=== PATIENT | female | born 1940 | race Caucasian/White ===

== ENCOUNTER 2023-07-10 14:34 | Outpatient (OUT) | payer OTHER, SELFPAY ==
[2023-07-10 15:02] LABS: Basophils Absolute Auto 0.1 10^3/uL (0.0-0.1); Basophils Percent Auto 0.8 % (0.2-2.0); Eosinophils Absolute Auto 0.2 10^3/uL (0.0-0.7); Hematocrit 42.3 % (36.0-48.0); Hemoglobin 13.7 g/dL (12.0-16.0); Immature Granulocytes Abs Auto 0.02 10^3/uL (0.00-0.03); Immature Granulocytes Pct Auto 0.2 % (0.0-0.5); Lymphocytes Absolute Auto 2.1 10^3/uL (1.2-3.8); Lymphocytes Percent Auto 25.4 % (20.5-60.0); Mean Corpuscular HGB Conc 32.4 g/dL (29.9-35.2); Mean Corpuscular Hemoglobin 31.1 pg (26.7-34.0); Mean Corpuscular Volume 95.9 fL (81.0-99.0); Mean Platelet Volume 9.6 fL (9.5-13.5); Monocytes Absolute Auto 0.5 10^3/uL (0.3-0.8); Monocytes Percent Auto 6.2 % (1.7-12.0); Neutrophils Absolute Auto 5.5 10^3/uL (1.4-6.5); Neutrophils Percent Auto 65.4 % (43.0-75.0); Platelet Count 233 10^3/uL (150-450); Red Blood Count 4.41 10^6/uL (4.20-5.40); Red Cell Distribution Width 13.4 % (11.0-15.0); White Blood Count 8.4 10^3/uL (4.0-11.0)
[2023-07-10 15:30] LABS: Alanine Aminotransferase 15 U/L (14-59); Albumin Globulin Ratio 1.1; Albumin Level 3.5 g/dL (3.4-5.0); Alkaline Phosphatase 114 U/L (46-116); Anion Gap 8.5; Aspartate Amino Transferase 17 U/L (15-37); BUN Creatinine Ratio 22.5; Bilirubin Total 0.4 mg/dL (0.2-1.0); Calcium 8.4 mg/dL (8.5-10.1); Carbon Dioxide 30.3 mmol/L (21.0-32.0); Chloride 106 mmol/L (98-107); Estimated GFR (African America >60 (>=60); Estimated GFR (Non-African Ame >60 (>=60); Globulin 3.3 g/dL; Glucose 101 mg/dL (74-106); Potassium 3.8 mmol/L (3.5-5.1); Sodium 141 mmol/L (136-145); Thyroid Stimulating Hormone 1.808 uIU/mL (0.358-3.740); Total Protein 6.8 g/dL (6.4-8.2)
== END 2023-07-10 14:35 | disposition home or self-care (01) ==
LOC: LAB 14:42
PROVIDERS: PCP Internal Medicine; Visit Provider Internal Medicine
DX: G20.A1 Parkinson's disease without dyskinesia, without mention of fluctuations (principal); I47.29 Other ventricular tachycardia; I87.2 Venous insufficiency (chronic) (peripheral); I10 Essential (primary) hypertension; R53.83 Other fatigue
CPT/HCPCS: 36415; 80053; 84443; 85025

== ENCOUNTER 2024-07-13 11:45 | Outpatient (OUT) | payer MEDICARE, OTHER, SELFPAY ==
--- OUTSIDE RECORDS SUMMARY | 2024-07-07 11:00 | XMS_ITS | Encounter Summary ---
Author Organization [facility] Address [address] [place] [address] Care Team Providers Care Tactical Debriefer Name Role Phone Jose C Kilgore DO Primary Care Provider [phone] Reason for Visit * Reason Comments Parkinson's Disease Insomnia Encounter Details Date Type Department Care Team (Latest Contact Info) Description 07/07/2024 11:00 AM EDT Office Visit [facility] [address] [place] [address] Alise Rob NP [address] [place], [place] Parkinson's disease, unspecified whether dyskinesia present, unspecified whether manifestations fluctuate (CMS/HCC) (Primary Dx); Primary insomnia; REM behavioral disorder Social History Tobacco Use Types Packs/Day Years Used Date Smoking Tobacco: Never Smokeless Tobacco: Never Tobacco Cessation:Counseling Given: Not Answered Alcohol Use Standard Drinks/Week Comments Never 0 (1 standard drink = 0.6 oz pur e alcohol) Comments Unknown Sex and Gender Information Value Date Recorded Sex Assigned at Not on file Legal Sex Female 8:33 PM EDT Gender Identity Not on file Sexual Orientation Not on file documented as of this encounter Last Filed Vital Signs Vital Sign Reading Time Taken Comments Blood Pressure 130/76 07/07/2024 11:03 AM EDT Pulse 133 07/07/2024 11:03 AM EDT Temperature - - Respiratory Rate - - Oxygen Saturation - - Inhaled Oxygen Concentration - - Weight - - Height 165.1 cm (5' 5 ) 07/07/2024 11:03 AM EDT Body Mass Index - - documented in this encounter Progress Notes * Alise Rob NP - 07/07/2024 11:00 AM EDT Images from the original note were not included. Chief Complaint Patient presents with Parkinson's Disease Insomnia Patient is here today for follow-up of Insomnia and Parkinson's disease. I am following the plan ofcare established by the physician who is present in the office today. Subjective Lissette is here today with her . She states the tremor is about the same. Tremor is constant. She denies any trouble eating, drinking, or swallowing. She states she does wake up in the middle of the night and it can be hard for her to go back to sleep. She states she only tried taking the doxepin one night and it did not help much so she stopped it. Past Medical History: Diagnosis Date Parasomnia Parkinson disease (CMS/HCC) Rash Tremor Past Surgical History: Procedure Laterality Date APPENDECTOMY CARDIAC DEFIBRILLATOR REMOVAL CARDIAC ELECTROPHYSIOLOGY MAPPING AND ABLATION CHOLECYSTECTOMY HYSTERECTOMY TUBAL LIGATION Family History Problem Relation Name Age of Onset Diabetes Sister Diabetes Brother Hypertension Other Social History Tobacco Use Smoking status: Never Smokeless tobacco: Never Substance Use Topics Alcohol use: Never Allergies: Patient has no known allergies. General: No fever or chills HEENT: No nasal congestion or runny nose Pulmonary: No shortness of breath or cough Cardiovascular: No chest pain or palpitations GI: No nausea or vomiting : No dysuria or hematuria Musculoskeletal: No new aches or pains or muscle weakness Infectious: no recurrent fevers or infections Dermatologic: No rashes or skin lesions Neurologic: No new headaches or dizziness Vitals: 07/07/24 1103 BP: 130/76 Pulse: (!) 133 Body mass index is 28.46 kg/m??. Neurologic exam: General: Normal body habitus, cooperative, pleasant Mental status: Awake, alert to person, place and time. Recent and remote memory are intact. Attention and concentration are normal. Fund of knowledge is appropriate for level of education. HEENT: NC/AT Cranial nerves: CN II: Visual grijalva full to confrontation. No loss of vision CN III, IV, : pupils equal round and reactive to light. Extraocular movements intact. No ptosis present. CN V: Facial sensation is normal. CN VII: Full and symmetric facial movement. CN VIII: Hearing is normal CN IX and X: Palate elevates symmetrically. CN XI: Shoulder shrug is normal bilaterally. CN XII: Tongue is midline without atrophy or fasciculation. Speech: Clear and fluent no aphasia or dysarthria Pronator drift: Negative bilateral upper extremity Coordination: Intact, no signs of dysmetria Good finger to nose and rapid alternating movements Sensory: Sensation is intact to light and vibratory touch throughout four extremities. Motor: LUE 5/5 RUE 5/5 LLE 4+/5 RLE 4+/5 Tone: Significant resting tremor in bilateral upper extremities worse on left than the right and some mild rigidity right upper extremity mild bradykinesia throughout DTR: Bilateral Biceps 2/4 Bilateral BR 2/4 Bilateral Patellar 2/4 No spasticity Gait: unsteady Romberg's x Review and summary of old records: Assessment/Plan Diagnoses and all orders for this visit: Parkinson's disease, unspecified whether dyskinesia present, unspecified whether manifestations fluctuate ([facility]) - entacapone (Comtan) 200 MG tablet; Take one tablet with the am and dinnertime dose of Sinemet CR 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 She still has a significanttremor on the right. She does walk slow, hunched, shuffled, no arm swing. helps her out of the chair. She tried the Mysoline that caused her severe headache and some other side effects so she discontinued it and threw it away. Her other symptoms of spasticity and rigidity and bradykinesia are mostly controlled with the current medication. She does need help to get out of the chair and this does occur at home. This is likely also due to upper body debility as she does not exercise her upper body. We did discuss this again today. She is now taking her Sinemet 4 times a day. As long as she remembers the bedtime does it helps, she has forgotten it in the past. She does have very visible tremor in room today in bilateral hands, left > right. She denies a wearing off of meds. The tremor does almost disappear when she is active and while using arms during exam. This is worse with anxiety and stress, when visitors are comingover. No difficulty eating or swallowing. We are going to add Comtan to two of her dose. She is exercising and she needs to increase exercise and intensity and be more active overall. She is using the stationary pedals although they are doing the work for her as she has not used the manual mode and should do this some. Her parasomnias and REM behavior do are controlled as long as she does not watch anything scarier or thrilling before bed. She is having sleep maintnenace insomnia and we did add back in the doxepin.It is unclear why she stopped taking it. She has only tired 1 cap and should try 2. She will watch for sedation. She will allow [address]. She does have some snoring so we did order an home sleep study to look for obstructive sleep apnea and they decided to not have this done. She denies any recent falls. . . . Plan Doxepin 10 mg 1-2 caps at bedtime for insomnia, she did not try 2 and she will Add Comtan 200 mg to the am and pm doses of Sinemet Continue sinemet CR to QID Continue Requip to 2mg tid Can consider adding in Klonopin for the REM behavior disorder becomes problematic Watch for progression She was counsleed on the importance of exercises on the disease process and set a time to exercise at least 5 days out of the week and was counseled on the importance of it to delay the disease She needs to add in some upper body exercises and use pedals on manual and let the pedals do the work for her The patient fails medicine over time we can consider DBS as with her tremor she would be a good candidate for this Do not watch anything scary or to thrilling before bed to reduce any REM behavior disorder This was discussed with the patient, all questions were answered and they agreed with the treatmentplan. The patient is to call with any worsening of the condition or new symptoms. Return to clinic: 3-4 months Cosigned by Courtney Ragland DO at 07/07/2024 1:50 PM EDT documented in this encounter Plan of Treatment Upcoming Encounters Date Type Department Care Team (Late st Contact Info) Description 11/21/2024 11:00 AM EDT Office Visit [facility] [address] [place] [phone] Alise Rob NP [address] [place], [place] documented as of this encounter Visit Diagnoses Diagnosis Parkinson's disease, unspecified whether dyskinesia present, unspecified whether manifestations fluctuate ([facility])- Primary Primary insomnia 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
--- OUTSIDE RECORDS SUMMARY | 2024-07-13 11:52 | XMS_ITS | Encounter Summary ---
Author Organization [facility] Address [address] [place] [address] Care Team Providers Care Assembler Liquid Center Name Role Phone Jose C Kilgore DO Primary Care Provider [phone] Encounter Details Date Type Department Care Team (Late st Contact Info) Description 07/07/2024 Bamboo flowsheet [facility] [address] [phone] Alise Rob NP [address] [place], [place] Social History Tobacco Use Types Packs/Day Years Used Date Smoking Tobacco: Never Smokeless Tobacco: Never Alcohol Use Standard Drinks/Week Comments Never 0 (1 standard drink = 0.6 oz pur e alcohol) Comments Unknown Sex and Gender Information Value Date Recorded Sex Assigned at Not on file Legal Sex Female 8:33 PM EDT Gender Identity Not on file Sexual Orientation Not on file documented as of this encounter Plan of Treatment Upcoming Encounters Date Type Department Care Team (Late st Contact Info) Description 11/21/2024 11:00 AM EDT Office Visit [facility] [address] [phone] Alise Rob NP [address] documented as of this encounter Visit Diagnoses Not on filedocumented in this encounter Care Teams Assembler Liquid Center Relationship Specialty Start Date End Date Jose C Kilgore DO PCP - General Internal Medicine 09/28/23 documented as of this encounter
--- OUTSIDE RECORDS SUMMARY | 2024-07-13 11:52 | XMS_ITS | Encounter Summary ---
Author Organization [facility] Address [address] [place] [address] Care Team Providers Care Inventory And Pricing Associate Name Role Phone Jose C Kilgore DO Primary Care Provider [phone] Reason for Visit * Reason Comments Med Refill Encounter Details Date Type Department Care Team (Late Contact Info) Description 07/10/2024 Refill [facility] [address] [phone] Alise Rob NP [address] Parkinson's disease Social History Tobacco Use Types Packs/Day Years [...] Encounters Date Type Department Care Team (Late Contact Info) Description 11/21/2024 11:00 AM EDT Office Visit [facility] [address] [phone] Alise Rob NP [address] documented as of this encounter Visit Diagnoses Diagnosis Parkinson's disease Paralysis agitans documented in this encounter Care Teams Inventory And Pricing Associate Relationship Specialty Start Date End Date Jose C Kilgore DO PCP - General Internal Medicine 09/28/23 documented as of this encounter
--- OUTSIDE RECORDS SUMMARY | 2024-07-13 11:54 | XMS_ITS | CCD ---
Author Organization [facility] Care Team Providers Care Siphon Operator Name Role Phone DR JOSE C KILGORE Admitting Unavailable JAME, DR KELLY Attending Unavailable JAME, DR KELLY Primary Care Unavailable JAME, DR KELLY Consulting Jose C Rick Jose C Kilgore MD Primary Care Provider Jose C Kilgore DO Primary Care Provider NICKOLAS ROB Attending Unavailable NICKOLAS ROB Attending Unavailable NICKOLAS ROB Attending Unavailable Medications Current Medications Medication Drug Class(es) Dates Sig (Normalized) Sig (Original) aspirin 81 mg delayed release oral tablet (6 sources) Platelet Aggregation Inhibitor, Nonsteroidal Anti-inflammatory Drug take 1 tablet by mouth once daily aspirin (Aspirin Adult Low Dose) 81 MG EC tablet Take 81 mg by mouth Daily Active benazepril hydrochloride 10 mg oral tablet (19 sources) Angiotensin Converting Enzyme Inhibitor Start: 08-24-2023 take 10 mg by mouth once daily Benazepril Active 10 MG PO Daily 30 August 24, 2023 5:13pm Start: 08-24-2023 End: 08-24-2023 take 10 mg by mouth once daily Benazepril Discontinued 10 MG PO Daily 60 August 24, 2023 2:13pm August 24, 2023 5:14pm Start: 06-22-2023 End: 08-24-2023 take 1 tablet by mouth once daily benazepril (Lotensin) 5 MG tablet Take 5 mg by mouth Daily 06/23/2023 Active take 1 tablet by og th once daily Benazepril HCl 5 MG TAKE 1 TABLET BY MOUTH EVERY DAY for 90 Active Calcium Carbonate-Vit D-Min ( Calcium-Vitamin D-Minerals) 600-400 MG-UNIT tablet (6 sources) take 1 tablet by mouth once daily Calcium Carbonate-Vit D-Min ( Calcium-Vitamin D-Minerals) 600-400 MG-UNIT tablet Take 1 tablet by mouth Daily Active carbidopa 25 mg / levodopa 100 mg extended release oral tablet (9 sources) Aromatic Amino Acid Decarboxylation Inhibitor, Aromatic Amino Acid Start: take 1 tablet by mouth at bedtime carbidopa-levodopa CR (Sinemet CR) 25-100 MG ER tablet Indications: Tremor TAKE 1 TAB BY MOUTH IN MORNING,AT NOON,IN THE EVENING,AND BEFORE BEDTIME*DO NOT CRUSH,CHEW,OR SPLIT* 270 tablet 2 12/28/2023 Active Start: 07-08-2023 take 1 tablet by og th three times daily Carbidopa-Levodopa Active 1 TAB PO Three times daily July 08, 2023 12:00am Can add 4th dose occasionally if needed doxepin hydrochloride 10 mg oral capsule (5 sources) Tricyclic Antidepressant Start: 04-27-2024 take 1 capsule by mouth at bedtime doxepin (SINEquan) 10 MG capsule Indications: Primary insomnia TAKE 1-2 CAPSULES BY MOUTH AT BEDTIME 180 capsule 1 04/27/2024 Active Start: 04-05-2024 doxepin (SINEq uan) 10 MG capsule Indications: Primary insomnia Take 1-2 capsules at bedtime 60 capsule 2 04/05/2024 Active Start: 04-05-2024 doxepin (SINEq uan) 10 MG capsule Indications: Primary insomnia Take 1-2 capsules at bedtime 60 capsule 2 04/05/2024 Active entacapone 200 mg oral tablet (2 sources) Xssrzqfa-X-Oeivicmenfblyttns Inhibitor Start: 07-07-2024 entacapone (Comtan) 200 MG tablet Indications: Parkinson's disease, unspecified whether dyskinesia present, unspecified whether manifestations fluctuate (CMS/HCC) Take one tablet with the am and dinnertime dose of Sinemet CR 60 tablet 5 07/07/2024 Active Start: 07-07-2024 entacapone (Co mtan) 200 MG tablet Indications: Parkinson's disease, unspecified whether dyskinesia present, unspecified whether manifestations fluctuate (CMS/HCC) Take one tablet with the am and dinnertime dose of Sinemet CR 60 tablet 5 07/07/2024 Active rOPINIRole 2 mg oral tablet (9 sources) Nonergot Dopamine Agonist Start: 04-13-2024 End: 07-12-2024 take 1 tablet by mouth in the morning, then take 1 tablet by mouth in the evening, then take 1 tablet by mouth at bedtime rOPINIRole (Requip) 2 MG tablet Indications: Parkinson's disease Take 1 tablet (2 mg) by mouth in the morning and 1 tablet (2 mg) in the evening and 1 tablet (2 mg) before bedtime. 90 tablet 2 04/13/2024 07/12/2024 Active Start: 10-22-2023 take 1 tablet by og th in the morning, then take 1 tablet by mouth in the evening, then take 1 tablet by mouth at bedtime rOPINIRole (Requip) 2 MG tablet Indications: Parkinson's disease (CMS/HCC) Take 1 tablet (2 mg) by mouth in the morning and 1 tablet (2 mg) in the evening and 1 tablet (2 mg) before bedtime. 270 tablet 10/22/2023 Active Start: 07-08-2023 take 2 mg by mouth t hree times daily Ropinirole Active 2 MG PO Three times daily July 08, 2023 12:00am Suprep Bowel Prep . (7 sources) Start: 06-28-2014 Suprep Bowel P rep . as directed Orally as directed for 1 dose(s) June, Active verapamil hydrochloride 120 mg extended release oral tablet (20 sources) Calcium Channel Meron Start: 06-22-2023 End: 07-08-2023 take 1 tablet by mouth once daily Verapamil Discontinued 0 .ROUTE .COMPLEX 90 June 22, 2023 10:08pm July 08, 2023 10:00am TAKE 1 TABLET BY MOUTH EVERY DAY Start: 06-22-2023 End: 08-24-2023 take 1 tablet by mouth once daily verapamil SR (Calan SR) 120 MG ER tablet Take 120 mg by mouth Daily 06/22/2023 Active take 1 tablet by og th once daily Verapamil HCl ER 120 MG TAKE 1 TABLET BY MOUTH EVERY DAY for 90 Active Completed/Discontinued Medications Medication Drug Class(es) Dates Sig (Normalized) Sig (Original) B-12 - up to 1000 mcg (20 sources) Start: 03-02-2023 B-12 - up to 1000 mcg Feb, 1 mL Start: 01-30-2023 B-12 - up to 1 000 mcg Jan, 1000 mcg Start: 12-29-2022 B-12 - up to 1 000 mcg Dec, 1000 mcg Start: 11-25-2022 B-12 - up to 1 000 mcg Nov, 1000 mcg Start: 10-22-2022 B-12 - up to 1 000 mcg Sep, 1000 mcg Start: 09-01-2022 B-12 - up to 1 000 mcg Aug, 1000 mcg Start: 07-25-2022 B-12 - up to 1 000 mcg Jul, 1000 mcg Start: 06-05-2022 B-12 - up to 1 000 mcg May, 1000 mcg Start: 04-24-2022 B-12 - up to 1 000 mcg Apr, 1000 mcg Start: 03-17-2022 B-12 - up to 1 000 mcg Feb, 1000 mcg Problems Active Problems Problem Classification Problem Date Documented Date Episodic/Chronic Cardiac arrest and ventricular fibrillation (4 sources) Ventricular flutter; Translations: [Ventricular flutter] Onset: 02-23-1958 Chronic Cardiac dysrhythmias (6 sources) Nonsustained ventricular tachycardia ; Translations: [Nonsustained ventricular tachycardia] 07-09-2023 Chronic Deficiency and other anemia (8 sources) Vitamin B12 deficiency anemia due to intrinsic factor deficiency; Translations: [VITAMIN B12 DEF ANEMIA DUE IF DEF] Onset: 02-03-2022 Episodic Deficiency and other anemia (15 sources) Pernicious anemia; Translations: [Vitamin B12 deficiency anemia due to intrinsic factor deficiency] 06-08-2023 Episodic Disorders of lipid metabolism (20 sources) Familial hypercholesterolemia; Translations: [Hyperlipidemia] Onset: 08-08-2014 07-09-2023 Chronic Diverticulosis and diverticulitis (7 sources) Diverticular disease; Translations: [Diverticulosis] Chronic Esophageal disorders (10 sources) Esophageal reflux finding; Translations: [Esophageal reflux] 07-09-2023 Chronic Esophageal disorders (1 source) Esophageal disorders; Translations: [Gastro-esophageal reflux disease with esophagitis, without bleeding] Essential hypertension (18 sources) Essential (primary) hypertension; Translations: [Essential hypertension] Onset: 01-31-2022 Chronic Genitourinary symptoms and ill-defined conditions (4 sources) Female stress incontinence; Translations: [Female stress incontinence] Onset: 02-26-2014 Chronic Immunizations and screening for infectious disease (4 sources) Vaccination given; Translations: [Encounter for immunization] Episodic Late effects of cerebrovascular disease (4 sources) Ataxia as sequela of cerebrovascular disease; 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] Onset: 09-05-2013 Chronic Menopausal disorders (4 sources) Primary ovarian failure; Translations: [Other primary ovarian failure] Onset: 08-15-2016 Chronic Miscellaneous mental health disorders (10 sources) Primary insomnia; Translations: [Primary insomnia] Onset: 09-23-2023 09-23-2023 Chronic Nutritional deficiencies (4 sources) Vitamin D deficiency; Translations: [Vitamin D deficiency, unspecified] Chronic Other and unspecified benign neoplasm (7 sources) History of polyp of colon; Translations: [History of colon polyps] Episodic Other and unspecified benign neoplasm (4 sources) Benign neoplasm of descending colon; Translations: [Benign neoplasm of descending colon] Episodic Other and unspecified benign neoplasm (4 sources) Benign neoplasm of colon; Translations: [Benign neoplasm of colon] Episodic Other circulatory disease (4 sources) H/O: cardiovascular disease; Translations: [Personal history of other diseases of the circulatory system] Episodic Other diseases of veins and lymphatics (8 sources) Peripheral venous insufficiency; Translations: [Venous insufficiency (chronic) (peripheral)] Onset: 08-15-2016 Episodic Other diseases of veins and lymphatics (3 sources) Venous insufficiency of leg; Translations: [Venous insufficiency (chronic) (peripheral)] 07-09-2023 Episodic Other diseases of veins and lymphatics (3 sources) Venous insufficiency (chronic) (peripheral); Translations: [Venous (peripheral) insufficiency, unspecified] 07-10-2023 Episodic Other fractures (4 sources) Closed fracture of one rib; Translations: [Fracture of one rib, right side, initial encounter for closed fracture] Episodic Other injuries and conditions due to external causes (4 sources) History of fall; Translations: [History of falling] Episodic Other nutritional; endocrine; and metabolic disorders (8 sources) Body mass index 30+ - obesity; Translations: [Body mass index 30.0-30.9, adult] Onset: 08-14-2015 Chronic Other nutritional; endocrine; and metabolic disorders (4 sources) Obesity; Translations: [Obesity, unspecified] Chronic Other nutritional; endocrine; and metabolic disorders (4 sources) Simple obesity ; Translations: [Other obesity due to excess calories] Onset: 08-20-2016 Chronic Other nutritional; endocrine; and metabolic disorders (6 sources) Overweight; Translations: [Overweight] 07-10-2023 Episodic Other nutritional; endocrine; and metabolic disorders (2 sources) Overweight; Translations: [Overweight] 07-10-2023 Episodic Parkinson`s disease (17 sources) Parkinson's disease; Translations: [Parkinson's disease] Onset: 09-23-2023 07-09-2023 Chronic Residual codes; unclassified (6 sources) Parasomnia; Translations: [Parasomnia, unspecified] Onset: 09-23-2023 09-23-2023 Chronic Residual codes; unclassified (10 sources) REM sleep behavior disorder; Translations: [REM sleep behavior disorder] Onset: 09-23-2023 09-23-2023 Chronic Residual codes; unclassified (4 sources) Family history of malignant neoplasm of gastrointestinal tract; Translations: [Family history of malignant neoplasm of digestive organs] Episodic Residual codes; unclassified (4 sources) Requires influenza virus vaccination; Translations: [Need for prophylactic vaccination and inoculation, Influenza] Episodic Past or Other Problems Problem Classification Problem Date Documented Date Episodic/Chronic Cardiac dysrhythmias (4 sources) Palpitations; Translations: [Palpitations] Onset: 09-15-2018 Episodic Inflammatory diseases of female pelvic organs (4 sources) Vaginitis and vulvovaginitis; Translations: [Vaginitis and vulvovaginitis in diseases classified elsewhere] Onset: 02-07-2014 Episodic Mycoses (4 sources) Candidiasis; Translations: [Candidiasis of unspecified site] Onset: 02-26-2014 Episodic Other nervous system disorders (10 sources) Tremor; Translations: [Tremor, unspecified] Onset: 09-23-2023 09-23-2023 Episodic Other nervous system disorders (4 sources) Paresthesia; Translations: [Paresthesia of skin] Onset: 09-05-2013 Episodic Other nutritional; endocrine; and metabolic disorders (4 sources) Body mass index 25-29 - overweight; Translations: [Body mass index 28.0-28.9, adult] Onset: 08-20-2016 Episodic Other skin disorders (6 sources) Eruption; Translations: [Rash and other nonspecific skin eruption] Onset: 09-23-2023 09-23-2023 Episodic Residual codes; unclassified (4 sources) Pale complexion; Translations: [Pallor] Onset: 08-20-2016 Episodic Results Test Name Value Interpretation Reference Range Facility Basophils Auto (Bld) [#/Vol] on 07-10-2023 Basophils (Bld) [#/Vol] 0.1 10 3/uL 0.0-0.1 [facility] Basophils/100 WBC Auto (Bld) on 07-10-2023 Basophils/100 WBC (Bld) 0.8 % 0.2-2.0 [facility] Eosinophils/100 WBC Auto (Bl d)on 07-10-2023 Eosinophils/100 WBC (Bld) 2.0 % 0.9-7.0 [facility] Erythrocyte distribution wid th Auto (RBC) [Ratio]on 07-10-2023 Erythrocyte distribution width (RBC) [Ratio] 13.4 % 11.0-15.0 [facility] Estimated glomerular filtrat ion rate (GFR) non- Americanon 07-10-2023 GFR/1.73 sq M.predicted among non-blacks MDRD (S/P/Bld) [Vol rate/Area] mL/min/{1.73_m2} >=60 [facility] Globulin Calc (S) [Mass/Vol] on 07-10-2023 Globulin (S) [Mass/Vol] 3.3 g/dL [facility] Hematocrit Auto (Bld) [Volum e fraction]on 07-10-2023 Hematocrit (Bld) [Volume fraction] 42.3 % 36.0-48.0 [facility] Hemoglobin [Mass/volume] in Bloodon 07-10-2023 Hemoglobin (Bld) [Mass/Vol] 13.7 g/dL 12.0-16.0 [facility] - Chemistry and C hemistry - challengeon 07-10-2023 Albumin [Mass/Vol] 3.5 g/dL 3.4-5.[address] [facility] ALP [Catalytic activity/Vol] 114 U/L 46-116 [facility] ALT [Catalytic activity/Vol] 15 U/L 14-59 [facility] AST [Catalytic activity/Vol] 17 U/L 15-37 [facility] Bilirubin [Mass/Vol] 0.4 mg/dL 0.2-1.0 [facility] Calcium [Mass/Vol] 8.4 mg/dL Low 8.5-10.[address] [facility] Chloride [Moles/Vol] 106 mmol/L 98-107 [facility] CO2 [Moles/Vol] 30.3 mmol/L 21.0-32.0 [facility] Creatinine [Mass/Vol] 0.80 mg/dL 0.55-1.02 [facility] GFR/1.73 sq M.predicted MDRD (S/P/Bld) [Vol rate/Area] mL/min/{1.73_m2} >=60 [facility] Glucose [Mass/Vol] 101 mg/dL 74-[address] [facility] Potassium [Moles/Vol] 3.8 mmol/L 3.5-5.1 [facility] Protein [Mass/Vol] 6.8 g/dL 6.4-8.[address] [facility] Sodium [Moles/Vol] 141 mmol/L 136-[address] [facility] TSH Qn 1.808 m[IU]/L 0.358-3.740 [facility] Urea nitrogen [Mass/Vol] 18.0 mg/dL 7.0-18.0 [facility] Urea nitrogen/Creatinine [Mass ratio] 22.5 mg/mg [facility] - Hematology and Cell countson 07-10-2023 Immature granulocytes/100 WBC (Bld) 0.2 % 0.0-0.5 [facility] Leukocytes [#/volume] correc jenny for nucleated erythrocytes in Blood by Automated counon 07-10-2023 WBC corrected for nucl RBC Auto (Bld) [#/Vol] 8.4 10 3/uL 4.0-11.0 [facility] Lymphocytes Auto (Bld) [#/Vo l]on 07-10-2023 Lymphocytes (Bld) [#/Vol] 2.1 10 3/uL 1.2-3.8 [facility] Lymphocytes/100 WBC Auto (Bl d)on 07-10-2023 Lymphocytes/100 WBC (Bld) 25.4 % 20.5-60.0 [facility] MCH Auto (RBC) [Entitic mass ]on 07-10-2023 MCH (RBC) [Entitic mass] 31.1 pg 26.7-34.0 [facility] MCHC Auto (RBC) [Mass/Vol]on 07-10-2023 MCHC (RBC) [Mass/Vol] 32.4 g/dL 29.9-35.2 [facility] MCV Auto (RBC) [Entitic vol] on 07-10-2023 MCV (RBC) [Entitic vol] 95.9 fL 81.0-99.0 [facility] Monocytes Auto (Bld) [#/Vol] on 07-10-2023 Monocytes (Bld) [#/Vol] 0.5 10 3/uL 0.3-0.8 [facility] Monocytes/100 WBC Auto (Bld) on 07-10-2023 Monocytes/100 WBC (Bld) 6.2 % 1.7-12.0 [facility] Neutrophils Auto (Bld) [#/Vo l]on 07-10-2023 Neutrophils (Bld) [#/Vol] 5.5 10 3/uL 1.4-6.5 [facility] Neutrophils/100 WBC Auto (Bl d)on 07-10-2023 Neutrophils/100 WBC (Bld) 65.4 % 43.0-75.0 [facility] No Panel Informationon 07-09 Eosinophils # (Auto) 0.2 10 3/uL 0.0-0.7 [facility] Immature Granulocyte # (Auto) 0.02 10 3/uL 0.00-0.03 [facility] Platelet mean volume Auto (B ld) [Entitic vol]on 07-10-2023 Platelet mean volume (Bld) [Entitic vol] 9.6 fL 9.5-13.5 [facility] Platelets Auto (Bld) [#/Vol] on 07-10-2023 Platelets (Bld) [#/Vol] 233 10 3/uL 150-450 [facility] RBC Auto (Bld) [#/Vol]on RBC (Bld) [#/Vol] 4.41 10 6/uL 4.20-5.40 [facility] Serum or plasma albumin/glob ulin mass ratioon 07-10-2023 Albumin/Globulin [Mass ratio] 1.1 {ratio} [facility] Serum or plasma anion gap de terminationon 07-10-2023 Anion gap [Moles/Vol] 8.5 mmol/L [facility] CBC AUTO DIFFon 01-31-2022 BASO # 0.0 103/ul Normal 0.0-0.1 [facility] Comment on above: Performed By: #### C BC #### [facility] [address] [address] [address] Mary Gilliam Basophils/100 WBC (Bld) 0.4 % Normal 0.2-2.0 [facility] Comment on above: Performed By: #### C BC #### [facility] [address] [place] [address] Dr. Mary Gilliam EO # 0.1 103/ul Normal 0.0-0.7 [facility] Comment on above: Performed By: #### C BC #### [facility] [address] [place] [address] Dr. Mary Gilliam Eosinophils/100 WBC (Bld) 1.9 % Normal 0.9-7.0 [facility] Comment on above: Performed By: #### C BC #### [facility] [address] [place] [address] Dr. Mary Gilliam Erythrocyte distribution width (RBC) [Ratio] 14.5 % Normal 11.0-15.0 [facility] Comment on above: Performed By: #### C BC #### [facility] [address] [place] [address] Dr. Mary Gilliam Hematocrit (Bld) [Volume fraction] 42.6 % Normal 36.0-48.0 [facility] Comment on above: Performed By: #### C BC #### [facility] [address] [place] [address] Dr. Mary Gilliam Hemoglobin (Bld) [Mass/Vol] 13.9 g/dL Normal 12.0-16.0 [facility] Comment on above: Performed By: #### C BC #### [facility] [address] [place] [address] Dr. Mary Gilliam IG # 0.02 10e3/ul Normal 0.00-0.03 [facility] Comment on above: Performed By: #### C BC #### [facility] [address] [place] [address] Dr. Mary Gilliam IG % 0.3 % Normal 0.0-0.5 [facility] Comment on above: Performed By: #### C BC #### [facility] [address] [place] [address] Dr. Mary Gilliam LYMPH # 1.9 103/ul Normal 1.2-3.8 [facility] Comment on above: Performed By: #### C BC #### [facility] [address] [place] [address] Dr. Mary Gilliam Lymphocytes/100 WBC (Bld) 28.2 % Normal 20.5-60.0 [facility] Comment on above: Performed By: #### C BC #### [facility] [address] [place] [address] Dr. Mary Gilliam MANUAL DIFF REQ NO Normal [facility] Comment on above: Performed By: #### C BC #### [facility] [address] [place] [address] Dr. Mary Gilliam MCH (RBC) [Entitic mass] 30.9 pg Normal 26.7-34.0 [facility] Comment on above: Performed By: #### C BC #### [facility] [address] [place] [address] Dr. Mary Gilliam MCHC (RBC) [Mass/Vol] 32.6 g/dL Normal 29.9-35.2 [facility] Comment on above: Performed By: #### C BC #### [facility] [address] [place] [address] Dr. Mary Gilliam MCV (RBC) [Entitic vol] 94.7 fL Normal 81.0-99.0 [facility] Comment on above: Performed By: #### C BC #### [facility] [address] [place] [address] Dr. Mary Gilliam MONO # 0.5 103/ul Normal 0.3-0.8 [facility] Comment on above: Performed By: #### C BC #### [facility] [address] [place] [address] Dr. Mary Gilliam Monocytes/100 WBC (Bld) 6.7 % Normal 1.7-12.0 [facility] Comment on above: Performed By: #### C BC #### [facility] [address] [place] [address] Dr. Mary Gilliam NEUT # 4.2 103/ul Normal 1.4-6.5 [facility] Comment on above: Performed By: #### C BC #### [facility] [address] [place] [address] Dr. Mary Gilliam Neutrophils/100 WBC (Bld) 62.5 % Normal 43.0-75.0 [facility] Comment on above: Performed By: #### C BC #### [facility] [address] [place] [address] Dr. Mary Gilliam Platelet mean volume (Bld) [Entitic vol] 9.4 fL Critically low 9.5-13.5 [facility] Comment on above: Performed By: #### C BC #### [facility] [address] [place] [address] Dr. Mary Gilliam PLT 246 103/ul Normal 150-450 [facility] Comment on above: Performed By: #### C BC #### [facility] [address] [place] [address] Dr. Mary Gilliam RBC 4.50 106/ul Normal 4.20-5.40 [facility] Comment on above: Performed By: #### C BC #### [facility] [address] [place] [address] Dr. Mary Gilliam WBC 6.7 103/ul Normal 4.0-11.0 [facility] Comment on above: Performed By: #### C BC #### [facility] [address] [place] [address] Dr. Mary Gilliam LIPID PROFILEon 01-31-2022 CHOL-HDL RATIO NORM SEE BELOW Normal [facility] Comment on above: Result Comment: 3.3 - 4.4 LOW RISK 4.4 - 7.1 AVERAGE RISK 7.1 - 11.0 MODERATE RISK >11.0 HIGH RISK Performed By: #### C MP, LIPID #### [facility] [address] [address] [address] Mary Gilliam Cholesterol [Mass/Vol] 169 mg/dL Normal <=200 [facility] Comment on above: Performed By: #### C MP, LIPID #### [facility] [address] [address] [address] Mary Gilliam Cholesterol in HDL [Mass/Vol] 53 mg/dL Normal 40-60 [facility] Comment on above: Performed By: #### C MP, LIPID #### [facility] [address] [address] [address] Mary Gilliam Cholesterol in LDL [Mass/Vol] 98.6 mg/dL Normal [facility] Comment on above: Performed By: #### C MP, LIPID #### [facility] [address] [address] [address] Mary Gilliam Cholesterol.total/Ch olesterol in HDL [Mass ratio] 3.2 {ratio} Normal [facility] Comment on above: Performed By: #### C MP, LIPID #### [facility] [address] [address] [address] Mary Gilliam HDL NORMAL > or = 60 mg/dl - LO W CARDIOVASCULAR RISK <40 mg/dl - HIGH CARDIOVASCULAR RISK Normal [facility] Comment on above: Performed By: #### C MP, LIPID #### [facility] [address] [address] [address] Mary Gilliam LDL CALC NORMAL SEE BELOW Normal [facility] Comment on above: Result Comment: <100 mg/dl OPTIMAL 100 - 129 mg/dl NEAR OR ABOVE OPTIMAL 130 - 159 mg/dl BORDERLINE HIGH 160 - 189 mg/dl HIGH >190 mg/dl VERY HIGH Performed By: #### C MP, LIPID #### [facility] [address] [address] [address] Mary Gilliam Triglyceride [Mass/Vol] 87 mg/dL Normal <=150 [facility] Comment on above: Performed By: #### C MP, LIPID #### [facility] [address] [place] [address] Dr. Mary Gilliam VLDL CALC 17.4 mg/dL Normal [facility] Comment on above: Performed By: #### C MP, LIPID #### [facility] [address] [place] [address] Dr. Mary Gilliam PROF 14(COMP METB)on 022 Albumin [Mass/Vol] 3.6 g/dL Normal 3.4-5.0 [facility] Comment on above: Performed By: #### C MP, LIPID #### [facility] [address] [place] [address] Dr. Mary Gilliam Albumin/Globulin [Mass ratio] 1.0 {ratio} Normal [facility] Comment on above: Performed By: #### C MP, LIPID #### [facility] [address] [place] [address] Dr. Mary Gilliam ALP [Catalytic activity/Vol] 111 U/L Normal 46-116 [facility] Comment on above: Performed By: #### C MP, LIPID #### [facility] [address] [place] [address] Dr. Mary Gilliam ALT [Catalytic activity/Vol] 10 U/L Critically low 14-59 [facility] Comment on above: Performed By: #### C MP, LIPID #### [facility] [address] [place] [address] Dr. Mary Gilliam Anion gap [Moles/Vol] 11.1 mmol/L Normal [facility] Comment on above: Performed By: #### C MP, LIPID #### [facility] [address] [place] [address] Dr. Mary Gilliam AST [Catalytic activity/Vol] 25 U/L Normal 15-37 [facility] Comment on above: Performed By: #### C MP, LIPID #### [facility] [address] [place] [address] Dr. Mary Gilliam Bilirubin [Mass/Vol] 0.4 mg/dL Normal 0.2-1.0 [facility] Comment on above: Performed By: #### C MP, LIPID #### [facility] [address] [place] [address] Dr. Mary Gilliam Calcium [Mass/Vol] 8.4 mg/dL Critically low 8.5-10.1 [facility] Comment on above: Performed By: #### C MP, LIPID #### [facility] [address] [place] [address] Dr. Mary Gilliam Chloride [Moles/Vol] 106 mmol/L Normal 98-107 [facility] Comment on above: Performed By: #### C MP, LIPID #### [facility] [address] [place] [address] Dr. Mary Gilliam CO2 [Moles/Vol] 29.2 mmol/L Normal 21.0-32.0 [facility] Comment on above: Performed By: #### C MP, LIPID #### [facility] [address] [place] [address] Dr. Mary Gilliam Creatinine [Mass/Vol] 0.83 mg/dL Normal 0.55-1.02 [facility] Comment on above: Performed By: #### C MP, LIPID #### [facility] [address] [place] [address] Dr. Mary Gilliam EGFR-AF ANGOLAN >60 Normal >=[address] [facility] Comment on above: Performed By: #### C MP, LIPID #### [facility] [address] [place] [address] Dr. Mary Gilliam EGFR-NON AF ANGOLAN >60 Normal >=60 [facility] Comment on above: Performed By: #### C MP, LIPID #### [facility] [address] [place] [address] Dr. Mary Gilliam Globulin (S) [Mass/Vol] 3.5 g/dL Normal [facility] Comment on above: Performed By: #### C MP, LIPID #### [facility] [address] [place] [address] Dr. Mary Gilliam Glucose [Mass/Vol] 98 mg/dL Normal 74-106 [facility] Comment on above: Performed By: #### C MP, LIPID #### [facility] [address] [place] [address] Dr. Mary Gilliam Potassium [Moles/Vol] 4.3 mmol/L Normal 3.5-5.1 [facility] Comment on above: Performed By: #### C MP, LIPID #### [facility] [address] [place] [address] Dr. Mary Gilliam Protein [Mass/Vol] 7.1 g/dL Normal 6.4-8.2 [facility] Comment on above: Performed By: #### C MP, LIPID #### [facility] [address] [place] [address] Dr. Mary Gilliam Sodium [Moles/Vol] 142 mmol/L Normal 136-145 [facility] Comment on above: Performed By: #### C MP, LIPID #### [facility] [address] [place] [address] Dr. Mary Gilliam Urea nitrogen [Mass/Vol] 16.0 mg/dL Normal 7.0-18.0 [facility] Comment on above: Performed By: #### C MP, LIPID #### [facility] [address] [place] [address] Dr. Mary Gilliam Urea nitrogen/Creatinine [Mass ratio] 19.3 mg/mg Normal [facility] Comment on above: Performed By: #### C MP, LIPID #### [facility] [address] [place] [address] Dr. Mary Gilliam Operative Reporton 0 Operative Report Date of Surgery: 03/29/2019 SURGEON: Mello Platt D.O. PREOPERATIVE DIAGNOSIS: Nuclear sclerotic cataract, left eye POSTOPERATIVE DIAGNOSIS: Nuclear sclerotic cataract, left eye OPERATION: Cataract extraction with intraocular lens placement, left eye ANESTHESIA: Local with monitored anesthesia care COMPLICATIONS: None ESTIMATED BLOOD LOSS: Zero PROCEDURE: The patient was brought to the Operating Room in the supine position. After proper identification, the left eye was prepped and draped in a sterile ophthalmic fashion. Two drops of Tetracaine were placed into the eye and a paracentesis was created at the two oclock position. Approximately 0.1 cc of unpreserved Xylocaine was injected into the anterior chamber and this was followed by Amvisc Plus. Using a 2.6 mm keratome blade, a clear corneal incision was created at the twelve oclock limbus. A cystotome was fashioned out of a 25 gauge needle and a curvilinear capsulorrhexis was begun and continued for 360 degrees with Utrata forceps. Balanced Salt Solution on a cannula was injected under the anterior capsule to hydrodissect as well as hydrodelineate the lens. After ensuring mobility with a second handpiece, phacoemulsification was performed in a conquer and divide type fashion. After all nuclear material had been removed from the eye, IA was introduced into the anterior chamber and all residual cortical material was cleaned up. Additional Amvisc Plus was injected into the posterior bag and a lens Model MX60 22.0 diopters was injected into the posterior bag as well. This was dialed into position with a secondhand piece and centered. After ensuring centration, IA was reintroduced into the anterior chamber and all residual Amvisc Plus was removed from the eye. Balanced Salt Solution on a cannula was injected into the stroma of the clear corneal incision as well as the paracentesis to hydrate the wounds. Additional Balanced Salt Solution was injected into the anterior chamber to pressurize the eye to approximately 20-22 mmHg by finger tension. Weck-cristal sponges were then utilized to check the wounds to be watertight. One drop of Iopidine, one drop of prednisolone acetate and one drop of Ocuflox were placed into the eye and a shield was placed over top. The patient was sent to the Postoperative Area in satisfactory condition to follow up the following day for postoperative care. Mello Platt D.O. gls Dictated: 03/29/2019 #[id number] Typed: 03/30/2019 #[id number] cc: Mello Platt D.O. [facility] Comment on above: Result Comment: Elec tronically Signed By: Mello Platt DO\.br\Date and Time Signed: 03/31/19 16:30 EST Coding Summary.on 03-30-2019 Coding Summary. CODING DATE: 020 FINAL [facility] STATUS: Home (Routine DC) PAYOR: Medicare APC DESCRIPTION 5491 Level 1 Intraocular Procedures ADMIT DX: REASON FOR VISIT DX: H25.12 Age-related nuclear cataract, left eye FINAL DX: PRINCIPAL: H25.12 Age-related nuclear cataract, left eye SECONDARY: G20 Parkinson's disease I10 Essential (primary) hypertension R00.0 Tachycardia, unspecified PYMT PROC APC STAT DESCRIPTION DOCTOR NAME DATE 5490 J1 Extracapsular cataract Mello Platt DO 03/29/2019 removal with insertion of intraocular lens prosthesis (1 stage procedure), manual or mechanical technique (eg, irrigation and aspiration or phacoemulsification); without endoscopic cyclophotocoagulation LT Left side (used to identify procedures performed on the left side of the body) NOTE: The code number assigned matches the documented diagnosis and / or procedure in the patient's chart. However, the narrative phrase printed from the coding software may appear abbreviated, or result in slightly different terminology. Coded By: Katherine Schmitt Date Saved: 03/30/2019 02:09 pm Normal [facility] History and Physicalon 03-29 History and Physical HOSPITAL REGULATION S: ALL Positive Important Negative Findings Shall Be Recorded DATE ADMITTED: 03/29/2019 HISTORY: The patient is a 78-year-old white female with complaints of declining vision out of her left eye. She claims that this has been ongoing for several years, two to three. She states that it is constant worsening, has progressed to a point where she no longer feels comfortable with her distance vision, with tasks such as watching television and reading the scrolling on the bottom of the screen. She also has difficulty at nighttime while driving with oncoming headlights creating glare. PAST OCULAR HISTORY, PAST MEDICAL HISTORY, PSYCHOSOCIAL HISTORY, MEDICATIONS, ALLERGIES TO MEDICATIONS, REVIEW OF SYSTEMS and PHYSICAL EXAMINATION unchanged from previously dictated. ASSESSMENT AND PLAN: Visually significant cataract, left eye. After risks, benefits, alternatives as well as expectations were delivered to the patient, she elected to go forward with cataract removal. She understands those risks to include but are not limited to infection, bleeding, loss of vision or loss of the eye itself. Secondly, she understands that postoperatively she is likely to require spectacle correction for her best visual acuity. Finally, a complete ophthalmic examination was performed and there was not determined to be any other source of vision decline other than that of the cataract. After understanding all risks as well as expectations, she elected to go forward with the procedure as listed above and will be doing so in the near future. Mello Platt D.O. gls Dictated: 03/28/2019 #[id number] Typed 03/29/2019 #[id number] cc: Mello Platt D.O. [facility] Comment on above: Result Comment: Elec tronically Signed By: Mello Platt DO\.br\Date and Time Signed: 03/29/19 07:24 EST Inpatient Patient Summaryon 03-29-2019 Inpatient Patient Summary [address] [address] [facility] Clinical Discharge Instructions PERSON INFORMATION Name: [facility]IA [facility] Admitting Physician: Mello Platt DO Attending Physician: Mello Platt DO PCP: JOSE C KILGORE DO Discharge Diagnosis: Cataract Comment: PATIENT EDUCATION INFORMATION Instructions: GIULIA- After Surgery Eye (Custom) Medication Leaflets: Follow up: With: Address: When: Mello Platt [facility] [address] [id number] Business (1) Within 1 to 2 days MEDICATION LIST Medications to Continue with No Changes Other Medications benazepril (benazepril 5 mg oral tablet) 1 Tablets By Mouth once a day (in the evening)., BP calcium-vitamin D (calcium-vitamin D 600 mg-200 intl units oral capsule) 1 Capsules By Mouth 2 times a day. carbidopa-levodopa (carbidopa-levodopa 25 mg-100 mg ER Tab) 1 Tablets By Mouth 3 times a day as needed Other (see comment)., parkinsons ropinirole (ropinirole 0.25 mg Tab) 1 Tablets By Mouth 3 times a day., parkinsons ropinirole (ropinirole 1 mg Tab) 1 Tablets By Mouth 3 times a day., parkinsons verapamil (verapamil 240 mg ER Tab) 1 Tablets By Mouth once a day (in the evening)., heart/BP Comment: Normal [facility] Main OR Intraoperative Recor don 03-29-2019 Main OR Intraoperative Record IntraOp Document Type FT Summary Primary Physician: Verarudy JOINER Mello Finalized Date/Time: 03/29/19 14:25:13 Pt. Name: KHALIF TAPIA /Sex: 1940 Female Med Rec #: [id number] Physician: Mello Platt DO Financial #: [id number] Pt. Type: A Room/Bed: 07/24 Admit/Disch: 03/29/19 05:46:32 - 03/29/19 09:40:00 Institution: Case Times FT Entry 1 Patient Times In Room 03/29/19 07:23:00 Out Room 03/29/19 07:48:00 Procedure Times Start 03/29/19 07:33:00 Stop 03/29/19 07:45:00 Anesthesia Times Start 03/29/19 07:23:00 Stop 03/29/19 07:48:00 Last Modified By: Hernandez CAMARILLO, Syed Carpenter 03/29/19 07:48:59 General Comments: 03/29/2019 Chart opened to review and send charges Flora Pitts CST Case Attendance FT Entry 1 Entry 2 Entry 3 Case Attendee Earnest Albright Jr., DO, DO, Mello Ng RN, Syed Carpenter Role Performed Anesthesiologist of Surgeon - Primary Bore Mill Operator - Primary Record Time In 03/29/19 07:23:00 03/29/19 07:23:00 03/29/19 07:23:00 Time Out 03/29/19 07:48:00 03/29/19 07:48:00 03/29/19 07:48:00 Procedure CATARACT EXTRACTION W/ CATARACT EXTRACTION W/ CATARACT EXTRACTION W/ INTRAOCULAR LENS(Left) INTRAOCULAR LENS(Left) INTRAOCULAR LENS(Left) Comments Last Modified By: Hernandez CAMARILLO, Syed Ng RN, Syed Chowdhury RN 03/29/19 07:49:00 03/29/19 07:49:00 03/29/19 07:49:00 Entry 4 Entry 5 Entry 6 Case Attendee Connor LIN, RN, Piedad TAYLOR/SAYessenia CST, Jennifer Kelly Role Performed Bore Mill Operator - Primary Scrub - Primary Scrub - Other Time In 03/29/19 07:23:00 03/29/19 07:23:00 03/29/19 07:23:00 Time Out 03/29/19 07:48:00 03/29/19 07:48:00 03/29/19 07:48:00 Procedure CATARACT EXTRACTION W/ CATARACT EXTRACTION W/ CATARACT EXTRACTION W/ INTRAOCULAR LENS(Left) INTRAOCULAR LENS(Left) INTRAOCULAR LENS(Left) Comments Last Modified By: Hernandez CAMARILLO, Syed Ng RN, Syed Ng RN, Syed Carpenter 03/29/19 07:49:00 03/29/19 07:49:00 03/29/19 07:49:00 Perioperative Protocols FT Pre-Care Text: Implements protective measures prior to operative or invasive procedure, confirms identity before the operative or invasive procedure, verifies operative procedure, surgical site, and laterality Entry 1 Procedure(s) CATARACT EXTRACTION W/ Patient Identity Birthday, ID Band INTRAOCULAR LENS(Left) Verified (select at Check, Patient least 2): Participation Consents / H and P Anesthesia Consent, Operative Site Present Verified HandP, Surgery/Procedure Marking Verified Consent Surgical Site Yes Laterality Verified Yes Verified Procedure Verified Yes Correct Patient Yes Position Verified Availability Equipment, Implant, Prep Dry n/a Verified (If Medication Applicable) PreOp Antibiotic No Time Out Earnest Albright Jr., DO Given Giulia Ch DO, Jonathan, Krupp RN, Connor EasleyN, RN, Piedad Champion CST/, Hong Casas CST, Jennifer Time Out Complete 03/29/19 07:30:00 Outcomes Met? Yes Last Modified By: Syed Ng RN 03/29/19 07:43:45 Post-Care Text: The patient is free from signs and symptoms of injury caused by extraneous objects Allergy Information FT Pre-Care Text: Verifies allergies Entry 1 Allergies Reviewed? Yes Allergies Reviewed Self/Patient With Outcomes Met? Yes Last Modified By: Syed Ng RN 03/29/19 07:17:50 Post-Care Text: The patient received appropriate medication(s) safely administered during the perioperative period Surgical Procedures FT Entry 1 Procedure Description Procedure CATARACT EXTRACTION W/ Modifiers Left INTRAOCULAR LENS IMPLANTATION Surgeon Description CATARACT EXTRACTION WITH INTRAOCULAR LENS IMPLANTATION LEFT EYE Primary Procedure Yes Primary Surgeon Mello Platt DO Start 03/29/19 07:33:00 Stop 03/29/19 07:45:00 Anesthesia Type General Surgical Service Ophthalmology Wound Class 1 - Clean Last Modified By: Syed Ng RN 03/29/19 07:49:03 General Case Data FT Pre-Care Text: Classifies surgical wound, implements aseptic technique, initiates traffic control Entry 1 Case Information OR OR 3 FT Case Level Level 2 Wound Class 1 - Clean Specialty Ophthalmology ASA Class 3 Preop Diagnosis CATARACT LEFT EYE Postop Same As Preop Yes Postop Diagnosis CATARACT LEFT EYE Outcomes Met? Yes Last Modified By: Syed Ng RN 03/29/19 07:49:02 Post-Care Text: The patient is free from signs and symptoms of infection Skin Assessment (Pre Procedure) FT Pre-Care Text: Implements protective measures to prevent skin/ tissue injury due to thermal or mechanical sources Evaluates for signs and symptoms of physical injury to skin and tissue Entry 1 Skin Integrity Intact, [place], Warm, and Skin Abnormality Yes Dry Abnormality Location bruising left chin from Outcomes Met? Yes dental procedure Last Modified By: Syed Ng RN 03/29/19 07:48:43 Post-Care Text: The patient is free from signs and symptoms of injury caused by extraneous objects Patient Positioning FT Pre-Care Text: Identifies physical alterations that require additional precautions for procedure-specific positioning, verifies presence of prosthetics or corrective devices, positions the patient, evaluates the patient for signs and symptoms of injury as a result of positioning Entry 1 Procedure CATARACT EXTRACTION W/ Additional folded towel under head INTRAOCULAR LENS(Left) Information Body Position Supine Feet Uncrossed? Yes Left Arm Position Resting at Side Right Arm Position Resting at Side Left Leg Position Extended Right Leg Position Extended Press Points Checked Yes By Syed Ng RN, Weisenburger BSN, RN, Jose Ramon Champion Jr., DO, Clyde G Outcomes Met? Yes Last Modified By: Syed Ng RN 03/29/19 07:18:42 Post-Care Text: The patient is free from signs and symptoms of injury related to positioning Patient Care Devices FT Pre-Care Text: Implements protective measures to prevent skin/ tissue injury due to thermal or mechanical sources Entry 1 Entry 2 Entry 3 Equipment Type MICROSCOPE EYE[F] MONITOR CHARGE SURGERY PHACO UNIT[F] [F] Equipment Number Equipment Setting Outcomes Met? Yes Yes Yes Last Modified By: Hernandez CAMARILLO, Syed Ng RN, Syed Chowdhury RN 03/29/19 07:19:12 03/29/19 07:19:12 03/29/19 07:19:12 Entry 4 Equipment Type MISTRAL FORCED AIR WARMING SYSTEM UNIT[F] Equipment Number [id number] Equipment Setting Outcomes Met? Yes Last Modified By: Syed Ng RN 03/29/19 07:19:12 Post-Care Text: The patient is free from signs and symptoms of injury caused by extraneous objects Transport To OR FT Pre-Care Text: Transports according to individual needs. Evaluates for signs and symptoms of skin and tissue injury as a result of transfer or transport Entry 1 Via Cart By Connor ALCANTARA, RN, Jaycee Safety Precautions Side Rails Up Outcomes Met? Yes Last Modified By: Syed Ng RN 03/29/19 07:19:25 Post-Care Text: The patient is free from signs and symptoms of injury related to transfer/transport Counts Verification FT Pre-Care Text: Performs required counts Entry 1 Entry 2 Procedure(s) CATARACT EXTRACTION W/ CATARACT EXTRACTION W/ INTRAOCULAR LENS(Left) INTRAOCULAR LENS(Left) Type Initial Final Items Instruments Instruments Status Correct Correct Time 03/29/19 07:45:00 By Sharp WELCOME DESK AGENT/SA, Yessenia Sharp WELCOME DESK AGENT/SA, Yessenia Outcomes Met? Yes Yes Last Modified By: Syed Ng RN, RN, Andrea L 03/29/19 07:19:47 03/29/19 07:48:29 Post-Care Text: The patient is free from signs and symptoms of injury caused by extraneous objects Skin Prep FT Pre-Care Text: Performs skin preparations Entry 1 Procedure CATARACT EXTRACTION W/ Prep Area operative site- left eye INTRAOCULAR LENS(Left) Prep Agents Saline Rinse, Betadine Scrub and Solution Hair Removal Methods Not Indicated By Connor ALCANTARA, RN, Outcomes Met? Yes Jaycee Last Modified By: Syed Ng RN 03/29/19 07:20:12 Post-Care Text: The patient is free from signs and symptoms of infection Departure From OR FT Pre-Care Text: Transports according to individual needs. Evaluates for signs and symptoms of skin and tissue injury as a result of transfer or transport. Entry 1 Via Cart Safety Precautions Side Rails Up PostOp Destination PACU Transported By Syed Ng RN Patient Status Stable Report Given Allegra Barajas RN To/Hand Off Communication Skin. Condition Intact, [place], Warm, and Dry Airway Maintenance Oxygen in Use? Yes Airway Device Simple Mask Flow Rate 8 L Outcomes Met? Yes Last Modified By: Syed Ng RN 03/29/19 07:48:53 Post-Care Text: The patient is free from signs and symptoms of injury related to transfer/transport General Comments: written and verbal report given to PACU nurseDarrian Rondon RN Dressing/Packing FT Pre-Care Text: Administers care to wound sites Entry 1 Type Dressing Site and Details left eye- plastic eye shield and paper tape Outcomes Met? Yes Last Modified By: Syed Ng RN 03/29/19 07:21:19 Post-Care Text: The patient is free from signs and symptoms of infection Medication Administration FT Pre-Care Text: Verifies allergies, administers prescribed medications and solutions, administers prescribed antibiotic therapy and immunizing agents as ordered, evaluates response to medications Administers prescribed medications and solutions Entry 1 Route of Admin Intraocular Expiration Date Yes Verified Outcomes Met? Yes Last Modified By: Syed Ng RN 03/29/19 07:21:30 Post-Care Text: The patient received appropriate medication(s) safely administered during the perioperative period For Reilly-Jose please see scanned medication reconcilliation form for medications used at the field during the procedure. 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 Yes Last Modified By: Syed Ng RN 03/29/19 07:43:14 Post-Care Text: The patient is free from signs and symptoms of injury caused by extraneous objects Temperature Control Entry 1 Temperature Control BLANKET MISTRAL AIR Quantity 1 Aid PLUS LOWER BODY [[id number]][F] Fluid/[place] Unit Mistral warming system Setting 43 C/ high Body Site Lower anterior torso Last Modified By: Syed Ng RN 03/29/19 07:22:00 Case Comments Finalized By: Melissa Pitts CST Document Signatures Signed By: Syed Ng RN 03/29/19 07:49 Melissa iPtts CST 03/29/19 14:25 Normal [facility] Main OR PACU I [facility] Main OR PACU I Record PACU Phase I Document Type FT Summary Primary Physician: Mello Platt DO Finalized Date/Time: 03/29/19 08:33:13 Pt. Name: KHALIF TAPIA/Sex: 1940 Female Med Rec #: [id number] Physician: Mello Platt DO Financial #: [id number] Pt. Type: A Room/Bed: [place] [address] Admit/Disch: 03/29/19 05:46:32 - Institution: Case Times PACU I FT Pre-Care Text: Identifies barriers to communication and implements measures to provide psychological support Develops individualized plan of care, and ensures continuity of care Maintains patient's dignity and privacy, and maintains patient confidentiality Identifies and reports philosophical, cultural, and spiritual beliefs and values Identifies individual values and wishes concerning care Implements aseptic technique, and administers prescribed antibiotic therapy and immunizing agents as ordered Evaluates postoperative tissue perfusion Implements thermoregulation measures, and monitors body temperature Evaluates postoperative respiratory status Evaluates postoperative cardiac status Evaluates postoperative neurological status Assesses pain control, collaborated in initiating patient-controlled analgesia and implements alternative methods of pain control Verifies allergies, administers prescribed medications and solutions, evaluates response to medications Entry 1 In PACU I 03/29/19 07:49:00 Discharge from PACU 03/29/19 08:19:00 I Outcomes Met? Yes Last Modified By: Allegra Barajas RN 03/29/19 08:32:54 Post-Care Text: The patient demonstrates knowledge of the expected response to the operative or invasive procedure The patient's care is consistent with the individualized perioperative plan of care The patient's right to privacy is maintained The patient's value system, lifestyle, ethnicity, and culture are considered, respected, and incorporated into the perioperative plan of care The patient participates in decisions affecting his or her perioperative plan of care The patient is free from signs and symptoms of infection The patient has wound/tissue perfusion consistent with or improved from baseline levels established preoperatively The patient is at or returning to normothermia at the conclusion of the immediate postoperative period The patient's respiratory function is consistent with or improved from baseline levels established preoperatively The patient's cardiovascular status is consistent with or improved from baseline levels established preoperatively The patient's cardiovascular status is consistent with or improved from baseline levels established preoperatively The patient demonstrates and/or reports adequate pain control throughout the perioperative period The patient received appropriate medication(s), safely administered during the perioperative period Acuity Level PACU I FT Entry 1 Start Time 03/29/19 07:49:00 Stop Time 03/29/19 08:19:00 Acuity Level Acuity Level I Last Modified By: Allegra Barajas RN 03/29/19 08:33:09 Finalized By: Allegra Barajas RN Document Signatures Signed By: Allegra Barajas RN 03/29/19 08:33 [facility] Main OR PACU II Recordon Main OR PACU II Record PACU Phase II Document Type FT Summary Primary Physician: Mello Platt DO Finalized Date/Time: 03/29/19 09:49:05 Pt. Name: KHALIF TAPIA/Sex: 1940 Female Med Rec #: [id number] Physician: Mello Platt DO Financial #: [id number] Pt. Type: A Room/Bed: Admit/Disch: 03/29/19 05:46:32 - Institution: Case Times PACU II FT Pre-Care Text: Identifies barriers to communication and implements measures to provide psychological support and determines knowledge level Develops individualized plan of care, and ensures continuity of care Maintains patient's dignity and privacy, and maintains patient confidentiality Identifies and reports philosophical, cultural, and spiritual beliefs and values Identifies individual values and wishes concerning care administers prescribed antibiotic therapy and immunizing agents as ordered, Evaluates postoperative tissue perfusion Implements thermoregulation measures, and monitors body temperature Evaluates postoperative respiratory status Evaluates postoperative cardiac status Evaluates postoperative neurological status Assesses pain control, collaborated in initiating patient-controlled analgesia and implements alternative methods of pain control Verifies allergies, administers prescribed medications and solutions, evaluates response to medications Entry 1 In PACU II 03/29/19 08:25:00 Discharge from PACU 03/29/19 09:40:00 II Outcomes Met? Yes Last Modified By: Sonya Trejo RN 03/29/19 09:49:03 Post-Care Text: The patient demonstrates knowledge of the expected response to the operative or invasive procedure The patient's care is consistent with the individualized perioperative plan of care The patient's right to privacy is maintained The patient's value system, lifestyle, ethnicity, and culture are considered, respected, and incorporated into the perioperative plan of care The patient participates in decisions affecting his or her perioperative plan of care. The patient is free from signs and symptoms of infection The patient has wound/tissue perfusion consistent with or improved from baseline levels established preoperatively The patient is at or returning to normothermia at the conclusion of the immediate postoperative period The patient's respiratory function is consistent with or improved from baseline levels established preoperatively The patient's cardiovascular status is consistent with or improved from baseline levels established preoperatively The patient's neurological status is consistent with or improved from baseline levels established preoperatively The patient demonstrates and/or reports adequate pain control throughout the perioperative period The patient received appropriate medication(s), safely administered during the perioperative period Finalized By: Sonya Trejo RN Document Signatures Signed By: Sonya Trejo RN 03/29/19 09:49 [facility] Main OR Preoperative Recordo n 03-29-2019 Main OR Preoperative Record PreOp Document Type FT Summary Primary Physician: Mello Platt DO Finalized Date/Time: 03/29/19 07:25:24 Pt. Name: KHALIF TAPIA.O.B./Sex: 1940 Female Med Rec #: [id number] Physician: Mello Platt DO Financial #: [id number] Pt. Type: A Room/Bed: Admit/Disch: 03/29/19 05:46:32 - Institution: Case Times PreOp FT Pre-Care Text: Verifies consent for planned procedure, identifies individual values and wishes concerning care, includes family members in perioperative teaching Entry 1 Patient Times. In Pre Surgery 03/29/19 05:55:00 Out Pre Surgery 03/29/19 07:01:00 Outcomes Met? Yes Last Modified By: Syed Ng RN 03/29/19 07:25:22 Post-Care Text: The patient participates in decisions affecting his or her perioperative plan of care Finalized By: Syed Ng RN Document Signatures Signed By: Syed Ng RN 03/29/19 07:25 [facility] Patient Education - Texton 0 03-29-2019 Patient Education - Text [place], [place] Mello Platt D.O. AFTER SURGERY [right eye] [left eye] RESTRICTIONS FOR SIX WEEKS: No rubbing of eye. Try not to sleep on stomach. Wear eye shield at bedtime for 2 WEEKS. Avoid circumstances which may result in trauma to the eye. You may shower and/or bathe. To wash hair allow water to run down back of the head if possible. For YOUR comfort, wear sunglasses in sunlight as needed. METHOD OF APPLYING EYE MEDICATION: Look up. Pull down lower lid. (NO PRESSURE ON EYE) Apply one drop of medication inside the pocket of lower lid. ON THE DAY OF SURGERY: Wear your shield until you get home and then it can be removed. Reapply the shield at bedtime or at any time you are sleeping. PAIN: use Tylenol 325 mg. every 4 hours as needed. The eye may feel as if there is an eyelash in it. This scratchiness is normal. Start your eye drops when you get home. (bolden)Besivance/ Ofloxacin ? apply to surgical eye, three more times today. (douglas)Diclofenac/ Ketorolac ? apply to surgical eye, four more times today. (pink/white)Prednisolone Acetate ? apply to surgical eye, six times today. -Wait 3-5 minutes between eye drops -Do one set of eye drops the next day in the morning before your appointment. [facility] Progress Note-Physicianon Progress Note-Physician Patient: KHALIF TAPIA Age: 78 years Sex: Female : 1940 Associated Diagnoses: None Author: Mello Platt DO Postoperative Information Date/ Time: 03/29/2019 07:46:00 Preoperative Diagnosis: Senile Cataract - OS. Postoperative Diagnosis: same . Procedure: Cataract Extraction with IOL placement - OS. Anesthesia Method: Local. Performed by: Mello Platt DO. Specimens Removed: none . Estimated Blood Loss: 0 ml. Complications: None. [facility] Comment on above: Result Comment: Elec tronically Signed By: Mello Platt DO\.br\Date and Time Signed: 03/29/19 07:46 EST Progress Note-Physician Patient: KHALIF TAPIA Age: 78 years Sex: Female : 1940 Associated Diagnoses: None Author: Earnest Albright Jr., DO Preoperative Information Time patient last ate or drank:=== (NPO since midnight) Anesthesia history: Patient History: No prior problems with anesthesia.. Re-eval prior to induction: Inital eval reviewed: No significant interval change, Surgical H&P documented and on chart. Surgical consent signed and on chart.. Anesthesia results Review of Systems Cardiovascular: Negative except as documented in history of present illness. Respiratory: Negative. Neurologic: Negative. Health Status Allergies: Allergic Reactions (Selected) No Known Medication Allergies, Allergies (1) Active Reaction No Known Medication Allergies None Documented Current medications: (Selected) Inpatient Medications Ordered HYDROmorphone 1 mg/mL injectable solution: 0.2 mg = 0.2 mL, Injection, IV Push, q2min PRN Pain for 10 dose(s), Stop date Limited # of times, Routine, Start date 03/29/19 6:54:00 EST Lactated Ringers IV Agbby 1000 mL 1,000 mL: 1,000 mL, IV, 100 mL/hr, Routine, Start date 03/29/19 6:54:00 EST, 10 hour(s), Total volume (mL): 1,000, 1.93, m2 Lactated Ringers IV Gabby 1000 mL 1,000 mL: 1,000 mL, IV, 150 mL/hr, Routine, Start date 03/29/19 6:00:00 EST, 6.7 hour(s), Total volume (mL): 1,000, 1.93, m2 Phenergan 25 mg/mL Injection: 6.25 mg = 0.25 mL, Injection, IV Push, q2min PRN Other (see comment) for 2 dose(s), Stop date Limited # of times, Routine, Start date 03/29/19 6:54:00 EST moxifloxacin 150 microgram/ 0.1 mL Intracameral: 750 microgram, 0.5 mL, Soln-Opth, OPTH, Once, Stop date 03/29/19 6:00:00 EST, Routine, Start date 03/29/19 6:00:00 EST Documented Medications Documented benazepril 5 mg oral tablet: 5 mg = 1 tab(s), Oral, qPM, Other (see comment) calcium-vitamin D 600 mg-200 intl units oral capsule: 1 cap(s), Oral, BID, Prophylaxis carbidopa-levodopa 25 mg-100 mg ER Tab: 1 tab(s), Oral, TID Other (see comment) ropinirole 0.25 mg Tab: 0.25 mg = 1 tab(s), Oral, TID, Other (see comment) ropinirole 1 mg Tab: 1 mg = 1 tab(s), Oral, TID, Other (see comment) verapamil 240 mg ER Tab: 240 mg = 1 tab(s), Oral, qPM, Other (see comment) Histories Past Medical History: No active or resolved past medical history items have been selected or recorded. Family History: No family history items have been selected or recorded. Procedure history: Abdominal hysterectomy ([id number]). Cholecystectomy (94678975). Cataract extraction and insertion of intraocular lens ([id number]). Comments: 01/06/2019 10:22 EST - Joy Gleason RN Right Eye General Anesthesia Insertion of implantable defibrillator pulse generator only; with existing dual leads (52066). Removal of implantable defibrillator pulse generator only (15222). Catheter ablation for cardiac arrhythmia ([id number]). Social History Social & Psychosocial Habits Alcohol 12/23/2018 Risk Assessment: Denies Alcohol Use Substance Abuse 12/23/2018 Risk Assessment: Denies Substance Abuse Tobacco 12/23/2018 Risk Assessment: Denies Tobacco Use . Physical Examination Airway: Mallampati classification: II (soft palate, fauces, uvula visible). Respiratory: Lungs are clear to auscultation. Cardiovascular: Regular rhythm. Review / Management Results review: Lab results 03/15/2019 9:47 EST WBC 6.1 E9/L RBC 4.5 E12/L Hgb 13.8 gm/dL Hct 42.0 % MCV 93.7 fL MCH 30.8 pg MCHC 32.8 gm/dL RDW 14.5 % HI Platelet 204.0 E9/L MPV 8.5 fL Glucose Random 139 mg/dL BUN 17 mg/dL Creatinine 0.9 mg/dL eGFR >60 mL/min/1.73 m2 eGFR AA >60 mL/min/1.73 m2 Sodium Lvl 140 mmol/L Potassium Lvl 3.7 mmol/L Chloride 109 mmol/L CO2 23 mmol/L AGAP 12 mEq/L . Chest x-ray results * Final Report * Reason For Exam Pre Op POWERSCRIBE REPORT IMPRESSION: NO EVIDENCE OF ACTIVE CHEST DISEASE. CLINICAL HISTORY: Pre Op. COMMENT: There is an intracardiac electrode, but no defibrillator device is present. The peripheral portion of the detached electrode is located anterior to the left hemithorax. The heart is normal in size. The mediastinum is unremarkable. The lungs appear clear. No infiltration nor pleural effusion is evident. Signature Line FINAL REPORT Dictated: 12/23/2018 3:02 pm Andrew Spaulding M.D. Signed (Electronic Signature): 12/23/2018 3:02 pm Signed by: Andrew Spaulding M.D. Transcribed by: TOMMY Technologist: LAVON GILBERT REPORT This document has an image Result type: XR Chest 2 Views Result date: December 23, 2018 11:47 EDT Result status: Auth (Verified) Result title: XR Chest 2 Views Performed by: Andrew Spaulding M.D. on December 23, 2018 15:02 EDT Verified by: Andrew Spaulding M.D. on December 23, 2018 15:02 EDT Encounter info: [id number], Reilly Hernan Garcia, Outpatient, 12/23/2018 - 12/23/2018 ECG interpretation: SINUS RHYTHM LOW QRS VOLTAGE IN PRECORDIAL LEADS MODERATE T-WAVE ABNORMALITY, CONSIDER ANTERIOR ISCHEMIA. Plan [place] [employer] (ASA) physical status classification: Class III. Anesthetic Preoperative Plan Anesthesia: General. . Anesthetic plan, risks, benefits, and alternatives discussed with the patient and/or family. Patient verbalized understanding. Adverse reactions, complications, and alternatives discujssed. Consent signed and on chart.. [facility] Comment on above: Result Comment: Elec tronically Signed By: Earnest Albright Jr., DO\.br\Date and Time Signed: 03/29/19 06:57 EST Coding Summary.on 03-17-2019 Coding Summary. CODING DATE: 020 FINAL [facility] STATUS: Home (Routine DC) PAYOR: Medicare ADMIT DX: REASON FOR VISIT DX: Z01.818 Encounter for other preprocedural examination FINAL DX: PRINCIPAL: Z01.818 Encounter for other preprocedural examination SECONDARY: PYMT PROC APC STAT DESCRIPTION DOCTOR NAME DATE NOTE: The code number assigned matches the documented diagnosis and / or procedure in the patient's chart. However, the narrative phrase printed from the coding software may appear abbreviated, or result in slightly different terminology. Coded By: Neida Don Date Saved: 03/17/2019 11:12 am [facility] BUNon 03-15-2019 Urea nitrogen [Mass/Vol] 17 mg/dL Normal 07-13 [facility] Comment on above: Performed By: #### 2 357308, 7034119, 7034174, 01678587, 4033052, 3207358 #### [facility] [address] [place] [address] CBC w/Indiceson 03-15-2019 Erythrocyte distribution width (RBC) [Ratio] 14.5 % High 10.9-14.2 [facility] Comment on above: Performed By: #### 2 085178, 7086339, 6285608, 92920401, 2278049, 3316944 #### [facility] [address] [place] [address] Hematocrit (Bld) [Volume fraction] 42.0 % Normal 34.0-46.0 [facility] Comment on above: Performed By: #### 2 269643, 0878756, 6106726, 48826702, 2599900, 9014293 #### [facility] [address] [place] [address] Hemoglobin (Bld) [Mass/Vol] 13.8 g/dL Normal 12.0-16.0 [facility] Comment on above: Performed By: #### 2 906256, 9125205, 4042557, 69304240, 5216006, 0719361 #### [facility] [address] [place] [address] 94325 MCH (RBC) [Entitic mass] 30.8 pg Normal 27.0-34.0 [facility] Comment on above: Performed By: #### 2 005438, 2178007, 9834401, 63535187, 3665325, 2167343 #### [facility] [address] [place] [address]407 MCHC (RBC) [Mass/Vol] 32.8 g/dL Normal 31.4-36.0 [facility] Comment on above: Performed By: #### 2 777004, 8022385, 9503949, 41724325, 6352493, 8853499 #### [facility] [address] [place] [address]149 MCV (RBC) [Entitic vol] 93.7 fL Normal 80.0-100.0 [facility] Comment on above: Performed By: #### 2 331938, 3569268, 4963975, 93092474, 1336503, 3034004 #### [facility] [address] [place] [address] Platelet mean volume (Bld) [Entitic vol] 8.5 fL Normal 6.4-10.8 [facility] Comment on above: Performed By: #### 2 487394, 5740138, 7287739, 17292509, 1215578, 3928279 #### [facility] [address] [place] [address] Platelets (Bld) [#/Vol] 204.0 E9/L Normal 150.0-500.0 [facility] Comment on above: Performed By: #### 2 617357, 2237969, 3677371, 01643823, 3011213, 0227428 #### [facility] [address] [place] [address] RBC (Bld) [#/Vol] 4.5 E12/L Normal 4.3-5.9 [facility] Comment on above: Performed By: #### 2 865654, 1466689, 8590194, 77552659, 2094334, 5501435 #### [facility] [address] [place] [address] WBC corrected for nucl RBC Auto (Bld) [#/Vol] 6.1 E9/L Normal 4.0-11.0 [facility] Comment on above: Performed By: #### 2 430585, 9135769, 9413034, 69626261, 1713878, 7260982 #### [facility] [address] [place] [address] Creatinineon 03-15-2019 Creatinine [Mass/Vol] 0.9 mg/dL Normal 0.5-1.3 [facility] Comment on above: Performed By: #### 2 972819, 6265337, 5567899, 42529188, 1971354, 5298500 #### [facility] [address] [place] [address] Glucoseon 03-15-2019 Glucose [Mass/Vol] 139 mg/dL Normal 55-199 [facility] Comment on above: Performed By: #### 2 546157, 9619033, 3058126, 33966727, 6475273, 5098881 #### [facility] [address] [place] [address] Lyteson 03-15-2019 Anion gap [Moles/Vol] 12 mmol/L Normal 6-16 [facility] Comment on above: Performed By: #### 2 889147, 5428647, 6037704, 75073353, 0819486, 4567323 #### [facility] [address] [place] [address] Chloride [Moles/Vol] 109 mmol/L Normal 101-111 [facility] Comment on above: Performed By: #### 2 406912, 0361348, 1158542, 62411590, 3474529, 9578686 #### [facility] [address] [place] [address] CO2 [Moles/Vol] 23 mmol/L Normal 21-31 [facility] [place] Comment on above: Performed By: #### 2 912683, 8602048, 3131285, 45099225, 7609305, 1084885 #### [facility] [address] [place] [address] Potassium [Moles/Vol] 3.7 mmol/L Normal 3.5-5.3 [facility] Comment on above: Performed By: #### 2 024492, 7398399, 9075143, 67735203, 4976997, 0219332 #### [facility] [address] [place] [address] Sodium [Moles/Vol] 140 mmol/L Normal 135-145 [facility] Comment on above: Performed By: #### 2 661036, 3567177, 9301079, 98842382, 3790257, 0628663 #### [facility] [address] [place] [address] eGFRon 03-15-2019 GFR/1.73 sq M predicted among blacks MDRD (S/P/Bld) [Vol rate/Area] mL/min/{1.73_m2} Normal >=59 [facility] Comment on above: Order Comment: Order added by Discern Expert. Result Comment: eGFR is race adjusted. AA=. Performed By: #### 2 099228, 7487277, 0419852, 52968276, 8780360, 9982716 #### [facility] [address] [place] [address] GFR/1.73 sq M predicted among non-blacks MDRD (S/P/Bld) [Vol rate/Area] mL/min/{1.73_m2} Normal >=59 [facility] Comment on above: Order Comment: Order added by Discern Expert. Result Comment: Senior Site Manager colt kidney disease could be indicated at eGFR's of less than 60 mL/min/1.73m2. Kidney failure is indicated at less than 15 mL/min/1.73m2. Performed By: #### 2 908902, 9402477, 3936040, 17983701, 3582357, 9206253 #### [facility] [address] [place] [address] Main OR PACU I Recordon 12-24 Main OR PACU I Record PACU Phase I Document Type FT Summary Primary Physician: Mello Platt DO Finalized Date/Time: 01/10/19 07:53:39 Pt. Name: KHALIF TAPIA/Sex: 1940 Female Med Rec #: [id number] Physician: Mello Platt DO Financial #: [id number] Pt. Type: A Room/Bed: [place] [address] Admit/Disch: 01/06/19 05:52:00 - 01/06/19 09:55:00 Institution: Case Times PACU I FT Pre-Care Text: Identifies barriers to communication and implements measures to provide psychological support Develops individualized plan of care, and ensures continuity of care Maintains patient's dignity and privacy, and maintains patient confidentiality Identifies and reports philosophical, cultural, and spiritual beliefs and values Identifies individual values and wishes concerning care Implements aseptic technique, and administers prescribed antibiotic therapy and immunizing agents as ordered Evaluates postoperative tissue perfusion Implements thermoregulation measures, and monitors body temperature Evaluates postoperative respiratory status Evaluates postoperative cardiac status Evaluates postoperative neurological status Assesses pain control, collaborated in initiating patient-controlled analgesia and implements alternative methods of pain control Verifies allergies, administers prescribed medications and solutions, evaluates response to medications Entry 1 In PACU I 01/06/19 07:51:00 Discharge from PACU 01/06/19 08:21:00 I Outcomes Met? Yes Last Modified By: Allegra Barajas RN 01/06/19 09:51:27 Post-Care Text: The patient demonstrates knowledge of the expected response to the operative or invasive procedure The patient's care is consistent with the individualized perioperative plan of care The patient's right to privacy is maintained The patient's value system, lifestyle, ethnicity, and culture are considered, respected, and incorporated into the perioperative plan of care The patient participates in decisions affecting his or her perioperative plan of care The patient is free from signs and symptoms of infection The patient has wound/tissue perfusion consistent with or improved from baseline levels established preoperatively The patient is at or returning to normothermia at the conclusion of the immediate postoperative period The patient's respiratory function is consistent with or improved from baseline levels established preoperatively The patient's cardiovascular status is consistent with or improved from baseline levels established preoperatively The patient's cardiovascular status is consistent with or improved from baseline levels established preoperatively The patient demonstrates and/or reports adequate pain control throughout the perioperative period The patient received appropriate medication(s), safely administered during the perioperative period Acuity Level PACU I FT Entry 1 Start Time 01/06/19 07:51:00 Stop Time 01/06/19 08:21:00 Acuity Level Acuity Level I Last Modified By: Allegra Barajas RN 01/10/19 07:53:24 Finalized By: Allegra Barajas RN Document Signatures Signed By: Allegra Barajas RN 01/06/19 09:51 Allegra Barajas RN 01/10/19 07:53 [facility] Operative Reporton 11-18-201 9 Operative Report Date of Surgery: 01/06/2019 SURGEON: Mello Platt D.O. PREOPERATIVE DIAGNOSIS: Nuclear sclerotic cataract, right eye POSTOPERATIVE DIAGNOSIS: Nuclear sclerotic cataract, right eye OPERATION: Cataract extraction with intraocular lens placement, right eye ANESTHESIA: Topical, local anesthesia with MAC COMPLICATIONS: None ESTIMATED BLOOD LOSS: Zero PROCEDURE: The patient was brought to the Operating Room in the supine position. After proper identification, the right eye was prepped and draped in a sterile ophthalmic fashion. Two drops of Tetracaine were placed into the eye and a paracentesis was created at the two oclock position. Approximately 0.1 cc of unpreserved Xylocaine was injected into the anterior chamber and this was followed by Amvisc Plus. Using a 2.6 mm keratome blade, a clear corneal incision was created at the twelve oclock limbus. A cystotome was fashioned out of a 25 gauge needle and a curvilinear capsulorrhexis was begun and continued for 360 degrees with Utrata forceps. Balanced Salt Solution on a cannula was injected under the anterior capsule to hydrodissect as well as hydrodelineate the lens. After ensuring mobility with a second handpiece, phacoemulsification was performed in a conquer and divide type fashion. After all nuclear material had been removed from the eye, IA was introduced into the anterior chamber and all residual cortical material was cleaned up. Additional Amvisc Plus was injected into the posterior bag and a lens Model MX60 21.5 diopters was injected into the posterior bag as well. This was dialed into position with a secondhand piece and centered. After ensuring centration, IA was reintroduced into the anterior chamber and all residual Amvisc Plus was removed from the eye. Balanced Salt Solution on a cannula was injected into the stroma of the clear corneal incision as well as the paracentesis to hydrate the wounds. Additional Balanced Salt Solution was injected into the anterior chamber to pressurize the eye to approximately 20-22 mmHg by finger tension. Weck-cristal sponges were then utilized to check the wounds to be watertight. One drop of Iopidine, one drop of prednisolone acetate and one drop of Ocuflox were placed into the eye and a shield was placed over top. The patient was sent to the Postoperative Area in satisfactory condition to follow up the following day for postoperative care. Mello Platt D.O. gls Dictated: 01/06/2019 #[id number] Typed: 01/06/2019 #[id number] cc: Mello Platt D.O. [facility] Comment on above: Result Comment: Elec tronically Signed By: Mello Platt DO\.br\Date and Time Signed: 01/10/19 15:03 EST Coding Summary.on 01-07-2019 Coding Summary. CODING DATE: 019 FINAL [facility] STATUS: Home (Routine DC) PAYOR: Medicare APC DESCRIPTION 5491 Level 1 Intraocular Procedures ADMIT DX: REASON FOR VISIT DX: H25.13 Age-related nuclear cataract, bilateral FINAL DX: PRINCIPAL: H25.13 Age-related nuclear cataract, bilateral SECONDARY: G20 Parkinson's disease I10 Essential (primary) hypertension R00.0 Tachycardia, unspecified PYMT PROC APC STAT DESCRIPTION DOCTOR NAME DATE 93592 5491 J1 Extracapsular cataract Giulia JOINERMello 01/06/2019 removal with insertion of intraocular lens prosthesis (1 stage procedure), manual or mechanical technique (eg, irrigation and aspiration or phacoemulsification) RT Right side (used to identify procedures performed on the right side of the body) NOTE: The code number assigned matches the documented diagnosis and / or procedure in the patient's chart. However, the narrative phrase printed from the coding software may appear abbreviated, or result in slightly different terminology. Coded By: Lela Weinstein Date Saved: 01/07/2019 01:46 pm [facility] Coding Summary. CODING DATE: 019 [facility] STATUS: Home (Routine DC) PAYOR: Medicare APC DESCRIPTION 5491 Level 1 Intraocular Procedures ADMIT DX: REASON FOR VISIT DX: H25.13 Age-related nuclear cataract, bilateral FINAL DX: PRINCIPAL: H25.13 Age-related nuclear cataract, bilateral SECONDARY: G20 Parkinson's disease I10 Essential (primary) hypertension PYMT PROC APC STAT DESCRIPTION DOCTOR NAME DATE 44809 5491 J1 Extracapsular cataract Giulia JOINERMello 01/06/2019 removal with insertion of intraocular lens prosthesis (1 stage procedure), manual or mechanical technique (eg, irrigation and aspiration or phacoemulsification) RT Right side (used to identify procedures performed on the right side of the body) NOTE: The code number assigned matches the documented diagnosis and / or procedure in the patient's chart. However, the narrative phrase printed from the coding software may appear abbreviated, or result in slightly different terminology. Coded By: Lela Weinstein Date Saved: 01/07/2019 01:46 pm [facility] Main OR Intraoperative Recor don 01-07-2019 Main OR Intraoperative Record IntraOp Document Type FT Summary Primary Physician: Mello Platt DO Finalized Date/Time: 01/07/19 11:39:44 Pt. Name: KHALIF TAPIA Brenda Chavarria/Sex: 1940 Female Med Rec #: [id number] Physician: Mello Platt DO Financial #: [id number] Pt. Type: A Room/Bed: [place] [address] Admit/Disch: 01/06/19 05:52:00 - 01/06/19 09:55:00 Institution: Case Times FT Entry 1 Patient Times In Room 01/06/19 07:24:00 Out Room 01/06/19 07:50:00 Procedure Times Start 01/06/19 07:36:00 Stop 01/06/19 07:47:00 Anesthesia Times Start 01/06/19 07:24:00 Stop 01/06/19 07:50:00 Last Modified By: Melissa Pitts CST 01/06/19 07:52:37 General Comments: 01/07/19 Chart opened to review and send charges Flora Pitts CST Case Attendance FT Entry 1 Entry 2 Entry 3 Case Attendee Daina Patino DO, Gerardo Platt DO, Mello Puente RN, Demetra Garrido Role Performed Anesthesiologist of Surgeon - Primary Bore Mill Operator - Primary Record Time In 01/06/19 07:24:00 01/06/19 07:24:00 01/06/19 07:24:00 Time Out 01/06/19 07:50:00 01/06/19 07:50:00 01/06/19 07:50:00 Procedure CATARACT EXTRACTION W/ CATARACT EXTRACTION W/ CATARACT EXTRACTION W/ INTRAOCULAR LENS(Right) INTRAOCULAR LENS(Right) INTRAOCULAR LENS(Right) Comments Last Modified By: Kwame RN, Demetra Puente RN, Demetra Vega RN 01/06/19 07:52:38 01/06/19 07:52:38 01/06/19 07:52:38 Entry 4 Entry 5 Entry 6 Case Attendee Hernandez CAMARILLO, Syed Smith WELCOME DESK AGENT, Jovana Gomez CST, Tammy Role Performed Bore Mill Operator - Primary Scrub - Primary Scrub - Other Time In 01/06/19 07:24:00 01/06/19 07:24:00 01/06/19 07:34:00 Time Out 01/06/19 07:50:00 01/06/19 07:50:00 01/06/19 07:50:00 Procedure CATARACT EXTRACTION W/ CATARACT EXTRACTION W/ CATARACT EXTRACTION W/ INTRAOCULAR LENS(Right) INTRAOCULAR LENS(Right) INTRAOCULAR LENS(Right) Comments Last Modified By: Demetra Puente RN, RN, Demetra Vega RN 01/06/19 07:52:38 01/06/19 07:52:38 01/06/19 07:52:38 Entry 7 Case Attendee Priscilla Laura RN Role Performed Bore Mill Operator - Relief Time In 01/06/19 07:24:00 Time Out 01/06/19 07:34:00 Procedure CATARACT EXTRACTION W/ INTRAOCULAR LENS(Right) Comments Last Modified By: Demetra Puente RN 01/06/19 07:52:38 Perioperative Protocols FT Pre-Care Text: Implements protective measures prior to operative or invasive procedure, confirms identity before the operative or invasive procedure, verifies operative procedure, surgical site, and laterality Entry 1 Procedure(s) CATARACT EXTRACTION W/ Patient Identity Birthday, ID Band INTRAOCULAR LENS(Right) Verified (select at Check, Patient least 2): Participation Consents / H and P Anesthesia Consent, Operative Site Present Verified HandP, Surgery/Procedure Marking Verified Consent Surgical Site Yes Laterality Verified Yes Verified Procedure Verified Yes Correct Patient Yes Position Verified Availability Equipment, Implant, Prep Dry n/a Verified (If Medication Applicable) PreOp Antibiotic See Comments Time Out Gerardo Lama Jr., DO, Given Participants Mello Platt DO, Farris RN, Hernandez Padilla RN, Luis Easley CST, Patricia Roldan CST, Tammy Time Out Complete 01/06/19 07:35:00 Outcomes Met? Yes Last Modified By: Demetra Puente RN 01/06/19 07:35:29 Post-Care Text: The patient is free from signs and symptoms of injury caused by extraneous objects Allergy Information FT Pre-Care Text: Verifies allergies Entry 1 Allergies Reviewed? Yes Allergies Reviewed Self/Patient With Outcomes Met? Yes Last Modified By: Demetra Puente RN 01/06/19 07:02:23 Post-Care Text: The patient received appropriate medication(s) safely administered during the perioperative period Surgical Procedures FT Entry 1 Procedure Description Procedure CATARACT EXTRACTION W/ Modifiers Right INTRAOCULAR LENS IMPLANTATION Surgeon Description CATARACT EXTRACTION WITH IOL RIGHT EYE WITH ANESTHESIA Primary Procedure Yes Primary Surgeon Mello Platt DO Start 01/06/19 07:36:00 Stop 01/06/19 07:47:00 Anesthesia Type General Surgical Service Ophthalmology Wound Class 1 - Clean Last Modified By: Demetra Puente RN 01/06/19 07:52:43 General Case Data FT Pre-Care Text: Classifies surgical wound, implements aseptic technique, initiates traffic control Entry 1 Case Information OR OR 3 FT Case Level Level 2 Wound Class 1 - Clean Specialty Ophthalmology ASA Class 3 Preop Diagnosis CATARACT RIGHT EYE Postop Same As Preop Yes Postop Diagnosis CATARACT RIGHT EYE Outcomes Met? Yes Last Modified By: Demetra Puente RN 01/06/19 07:41:31 Post-Care Text: The patient is free from signs and symptoms of infection Skin Assessment (Pre Procedure) FT Pre-Care Text: Implements protective measures to prevent skin/ tissue injury due to thermal or mechanical sources Evaluates for signs and symptoms of physical injury to skin and tissue Entry 1 Skin Integrity Unable to Visualize Skin Abnormality No Outcomes Met? Yes Last Modified By: Demetra Puente RN 01/06/19 07:03:39 Post-Care Text: The patient is free from signs and symptoms of injury caused by extraneous objects General Comments: patient clothed, visible skin intact. MARQUISE Bateman Patient Positioning FT Pre-Care Text: Identifies physical alterations that require additional precautions for procedure-specific positioning, verifies presence of prosthetics or corrective devices, positions the patient, evaluates the patient for signs and symptoms of injury as a result of positioning Entry 1 Procedure CATARACT EXTRACTION W/ Additional folded towel under head INTRAOCULAR LENS(Right) Information Body Position Supine Feet Uncrossed? Yes Left Arm Position Resting at Side Right Arm Position Resting at Side Left Leg Position Extended Right Leg Position Extended Positioning Device Safety Strap Press Points Checked Yes By Demetra Puente RN, Outcomes Met? Yes Gerardo Lama Jr., DO, Krupp RN, Syed Carpenter Last Modified By: Demetra Puente RN 01/06/19 07:35:42 Post-Care Text: The patient is free from signs and symptoms of injury related to positioning Patient Care Devices FT Pre-Care Text: Implements protective measures to prevent skin/ tissue injury due to thermal or mechanical sources Entry 1 Entry 2 Entry 3 Equipment Type MICROSCOPE EYE[F] MONITOR CHARGE SURGERY PHACO UNIT[F] [F] Equipment Number Equipment Setting Outcomes Met? Yes Yes Yes Last Modified By: Demetra Puente RN, RN, Karen M Farris RN, Karen M 01/06/19 07:02:59 01/06/19 07:02:59 01/06/19 07:02:59 Post-Care Text: The patient is free from signs and symptoms of injury caused by extraneous objects Transport To OR FT Pre-Care Text: Transports according to individual needs. Evaluates for signs and symptoms of skin and tissue injury as a result of transfer or transport Entry 1 Via Cart By Syed Ng RN Safety Precautions Side Rails Up Outcomes Met? Yes Last Modified By: Demetra Puente RN 01/06/19 07:35:49 Post-Care Text: The patient is free from signs and symptoms of injury related to transfer/transport Counts Verification FT Pre-Care Text: Performs required counts Entry 1 Procedure(s) CATARACT EXTRACTION W/ Type Initial INTRAOCULAR LENS(Right) Items Instruments Status Correct By Jovana Smith CST Outcomes Met? Yes Last Modified By: Demetra Puente RN 01/06/19 07:36:04 Post-Care Text: The patient is free from signs and symptoms of injury caused by extraneous objects Skin Prep FT Pre-Care Text: Performs skin preparations Entry 1 Procedure CATARACT EXTRACTION W/ Prep Area operative site-right eye INTRAOCULAR LENS(Right) Prep Agents Saline Rinse, Betadine Scrub and Solution Hair Removal Methods Not Indicated By Priscilla Laura RN Outcomes Met? Yes Last Modified By: Demetra Puente RN 01/06/19 08:03:37 Post-Care Text: The patient is free from signs and symptoms of infection Departure From OR FT Pre-Care Text: Transports according to individual needs. Evaluates for signs and symptoms of skin and tissue injury as a result of transfer or transport. Entry 1 Via Cart Safety Precautions Safety Strap, Side Rails Up PostOp Destination PACU Transported By Demetra Puente RN Patient Status Stable Skin. Condition Other/See Comments Description same as per op Airway Maintenance Oxygen in Use? Yes Airway Device Simple Mask Flow Rate 8 L/min Outcomes Met? Yes Last Modified By: Demetra Puente RN 01/06/19 07:40:13 Post-Care Text: The patient is free from signs and symptoms of injury related to transfer/transport General Comments: handoff report given to pacu nurse. MARQUISE Bateman Dressing/Packing FT Pre-Care Text: Administers care to wound sites Entry 1 Type Dressing Site and Details right eye: eye shield Outcomes Met? Yes Last Modified By: Demetra Puente RN 01/06/19 07:41:25 Post-Care Text: The patient is free from signs and symptoms of infection Medication Administration FT Pre-Care Text: Verifies allergies, administers prescribed medications and solutions, administers prescribed antibiotic therapy and immunizing agents as ordered, evaluates response to medications Administers prescribed medications and solutions Entry 1 Expiration Date Yes Outcomes Met? Yes Verified Last Modified By: Demetra Puente RN 01/06/19 07:02:40 Post-Care Text: The patient received appropriate medication(s) safely administered during the perioperative period For [facility] please see scanned medication reconcilliation form for medications used at the field during the procedure. Implant Log FT Pre-Care Text: Records devices implanted during the operative or invasive procedure Entry 1 Procedure CATARACT EXTRACTION W/ Implant/Explant Implant INTRAOCULAR LENS(Right) Implant Identification FT Description ROME [id number] 12.50MM Lot Number [id number] 21.50 [[id number]][F] Public Health Microbiologist FT-[employer] Catalog ?# [id number] [F] Size 21.5 Expiration Date 07/23/21 Unique Device [id number] Identifier (JOSE ALEJANDRO) Usage Data FT Implant Site Eye R Quantity 1 Implanted By Mello Platt DO Biological Implants MR Classification Unknown Outcomes Met? Yes Last Modified By: Demetra Puente RN 01/06/19 08:03:22 Post-Care Text: The patient is free from signs and symptoms of injury caused by extraneous objects Case Comments Finalized By: Melissa Pitts CST Document Signatures Signed By: Demetra Puente RN 01/06/19 07:52 Demetra Puente RN 01/06/19 08:03 Melissa Pitts CST 01/07/19 11:39 [facility] History and Physicalon 01-06 History and Physical HOSPITAL REGULATION S: ALL Positive Important Negative Findings Shall Be Recorded DATE ADMITTED: 01/06/2019 HISTORY: The patient is a 78-year-old white female who complains of declining vision out of her right eye. The gradual onset of this has occurred over the last several years but more rapidly progressing over the last few months. She states having difficulty at nighttime with headlights creating glare and halos around points of light. She also states having difficulty watching television. PAST OCULAR HISTORY: Denies. PAST MEDICAL HISTORY: 1. Hypertension. 2. Parkinson's disease. 3. Tachycardia. 4. She has a history of an AICD status post removal due to frequent triggering. 5. History of heart ablation. 6. Gallbladder surgery. 7. Hysterectomy. PSYCHOSOCIAL HISTORY: Denies tobacco, alcohol or recreational drug abuse. SYSTEMIC MEDICATIONS: 1. Ropinirole. 2. Carbidopa/levodopa. 3. Verapamil. 4. Benazepril. ALLERGIES: Denies. REVIEW OF SYSTEMS: No pertinent positives. PHYSICAL EXAMINATION: VITAL SIGNS: Blood pressure measured at 126/76 with a respiration rate of 12 and pulse of 80. GENERAL: She is awake, alert and oriented x3, well developed, well nourished. No acute distress. HEART: Regular rate and rhythm. LUNGS: Clear bilaterally. ABDOMEN: Soft, nontender, nondistended. EXTREMITIES: No pitting edema. EYES: Ophthalmic examination revealed a visual acuity of 20/50 +1 that glared to 20/100 in the right eye and 20/40 +2 that glared to 20/100 in the left eye. Pupils, motility, muscle balance, confrontation to visual grijalva are within normal limits bilaterally. Pressures are measured at 16 bilaterally. Slit-lamp examination revealed blepharitis with a severe decrease in tear film bilaterally. Conjunctivae, cornea, anterior chamber and iris are within normal limits bilaterally. Lens status demonstrated 3+ nuclear sclerosis with vacuoles bilaterally. Fundus examination revealed a good view with good dilation bilaterally. Optic discs, macula, vessels, periphery and vitreous within normal limits bilaterally. ASSESSMENT AND PLAN: Visually significant cataract, right eye. After risks, benefits, alternatives as well as expectations were delivered to the patient, she elected to go forward with cataract removal. She understands those risks to include but are not limited to infection, bleeding, loss of vision or loss of the eye itself. Secondly, she understands that postoperatively she is likely to require spectacle correction for her best visual acuity. Finally, a complete ophthalmic examination was performed and there was not determined to be any other source of vision decline other than that of the cataract. After understanding all risks as well as expectations, she elected to go forward with the procedure as listed above and will be doing so in the near future. Mello Platt D.O. gls Dictated: 01/05/2019 #[id number] Typed 01/06/2019 #[id number] cc: Mello Platt D.O. [facility] Comment on above: Result Comment: Elec tronically Signed By: Mello Platt DO\.br\Date and Time Signed: 01/06/19 07:51 EST Inpatient Patient Summaryon 01-06-2019 Inpatient Patient Summary [facility] Clinical Discharge Instructions PERSON INFORMATION Name: WILLIE KHALIF Gutierrez PHYSICIANS Admitting Physician: Mello Platt DO Attending Physician: Mello Platt DO PCP: JOSE C KILGORE DO Discharge Diagnosis: Cataract Comment: PATIENT EDUCATION INFORMATION Instructions: Post Op Patient Instructions - FT (CUSTOM) Medication Leaflets: Follow up: With: Address: When: [facility] [address] [place] [id number] ( ) [phone] [facility] (1) Within 1 to 2 days MEDICATION LIST Comment: [facility] Main OR PACU II [facility] Main OR PACU II Record PACU Phase II Document Type FT Summary Primary Physician: Mello Platt DO Finalized Date/Time: 01/06/19 10:22:05 Pt. Name: KHALIF TAPIA D.O.B./Sex: 1940 Female Med Rec #: [id number] Physician: Mello Platt DO Financial #: [id number] Pt. Type: A Room/Bed: [facility]8 Admit/Disch: 01/06/19 05:52:55 - Institution: Case Times PACU II FT Pre-Care Text: Identifies barriers to communication and implements measures to provide psychological support and determines knowledge level Develops individualized plan of care, and ensures continuity of care Maintains patient's dignity and privacy, and maintains patient confidentiality Identifies and reports philosophical, cultural, and spiritual beliefs and values Identifies individual values and wishes concerning care administers prescribed antibiotic therapy and immunizing agents as ordered, Evaluates postoperative tissue perfusion Implements thermoregulation measures, and monitors body temperature Evaluates postoperative respiratory status Evaluates postoperative cardiac status Evaluates postoperative neurological status Assesses pain control, collaborated in initiating patient-controlled analgesia and implements alternative methods of pain control Verifies allergies, administers prescribed medications and solutions, evaluates response to medications Entry 1 In PACU II 01/06/19 08:25:00 Discharge from PACU 01/06/19 09:55:00 II Outcomes Met? Yes Last Modified By: Joy Gleason RN 01/06/19 10:22:03 Post-Care Text: The patient demonstrates knowledge of the expected response to the operative or invasive procedure The patient's care is consistent with the individualized perioperative plan of care The patient's right to privacy is maintained The patient's value system, lifestyle, ethnicity, and culture are considered, respected, and incorporated into the perioperative plan of care The patient participates in decisions affecting his or her perioperative plan of care. The patient is free from signs and symptoms of infection The patient has wound/tissue perfusion consistent with or improved from baseline levels established preoperatively The patient is at or returning to normothermia at the conclusion of the immediate postoperative period The patient's respiratory function is consistent with or improved from baseline levels established preoperatively The patient's cardiovascular status is consistent with or improved from baseline levels established preoperatively The patient's neurological status is consistent with or improved from baseline levels established preoperatively The patient demonstrates and/or reports adequate pain control throughout the perioperative period The patient received appropriate medication(s), safely administered during the perioperative period Finalized By: Joy Gleason RN Document Signatures Signed By: Joy Gleason RN 01/06/19 10:22 [facility] Main OR Preoperative Recordo n 01-06-2019 Main OR Preoperative Record PreOp Document Type FT Summary Primary Physician: Mello Platt DO Finalized Date/Time: 01/06/19 07:41:48 Pt. Name: KHALIF TAPIA/Sex: 1940 Female Med Rec #: [id number] Physician: Mello Platt DO Financial #: [id number] Pt. Type: A Room/Bed: [facility]09/23 Admit/Disch: 01/06/19 05:52:55 - Institution: Case Times PreOp FT Pre-Care Text: Verifies consent for planned procedure, identifies individual values and wishes concerning care, includes family members in perioperative teaching Entry 1 Patient Times. In Pre Surgery 01/06/19 06:00:00 Out Pre Surgery 01/06/19 07:22:00 Outcomes Met? Yes Last Modified By: Demetra Puente RN 01/06/19 07:41:47 Post-Care Text: The patient participates in decisions affecting his or her perioperative plan of care Finalized By: Demetra Puente RN Document Signatures Signed By: Demetra Puente RN 01/06/19 07:41 [facility] Patient Education - Texton 1 03-08-2018 Patient Education - Text [facility] Progress Note-Physicianon Progress Note-Physician Patient: KHALIF TAPIA Age: 78 years Sex: Female : 1940 Associated Diagnoses: None Author: Mello Platt DO Postoperative Information Date/ Time: 01/06/19 07:50:00 Preoperative Diagnosis: Senile Cataract - OD . Postoperative Diagnosis: same . Procedure: Cataract Extraction with IOL placement - OD. Anesthesia Method: Local. Performed by: Mello Platt DO. Specimens Removed: none . Estimated Blood Loss: 0 ml. Complications: None. [facility] Comment on above: Result Comment: Elec tronically Signed By: Mello Platt DO\.br\Date and Time Signed: 01/06/19 07:50 EST Coding Summary.on 12-27-2018 Coding Summary. CODING DATE: 019 FINAL [facility] STATUS: Home (Routine DC) PAYOR: Medicare APC DESCRIPTION 5521 Level 1 Imaging without Contrast ADMIT DX: REASON FOR VISIT DX: Z01.818 Encounter for other preprocedural examination FINAL DX: PRINCIPAL: Z01.818 Encounter for other preprocedural examination SECONDARY: PYMT PROC APC STAT DESCRIPTION DOCTOR NAME DATE NOTE: The code number assigned matches the documented diagnosis and / or procedure in the patient's chart. However, the narrative phrase printed from the coding software may appear abbreviated, or result in slightly different terminology. Coded By: Cristin Mcdonnell CphT Date Saved: 12/24/2018 01:56 pm [facility] Coding Summary. CODING DATE: 019 FINAL [facility] STATUS: Home (Routine DC) PAYOR: Medicare APC DESCRIPTION 5521 Level 1 Imaging without Contrast ADMIT DX: REASON FOR VISIT DX: Z01.818 Encounter for other preprocedural examination FINAL DX: PRINCIPAL: Z01.818 Encounter for other preprocedural examination SECONDARY: PYMT PROC APC STAT DESCRIPTION DOCTOR NAME DATE NOTE: The code number assigned matches the documented diagnosis and / or procedure in the patient's chart. However, the narrative phrase printed from the coding software may appear abbreviated, or result in slightly different terminology. Coded By: Cristin Mcdonnell CphT Date Saved: 12/24/2018 01:56 pm [facility] BUNon 12-23-2018 Urea nitrogen [Mass/Vol] 21 mg/dL Normal 5-21 [facility] Comment on above: Performed By: #### 2 [id number], 9627113, 0572131, 15570511, 1227333, 3464655 #### [facility] [address] [place] [address] CBC w/Indiceson 12-23-2018 Erythrocyte distribution width (RBC) [Ratio] 14.5 % High 10.9-14.2 [facility] Comment on above: Performed By: #### 2 367728, 7744939, 4360284, 62196604, 8005495, 7966680 #### [facility] [address] [place] [address] Hematocrit (Bld) [Volume fraction] 43.1 % Normal 34.0-46.0 [facility] Comment on above: Performed By: #### 2 857547, 1206616, 1787252, 21350333, 2816976, 5123016 #### [facility] [address] [place] [address] Hemoglobin (Bld) [Mass/Vol] 14.2 g/dL Normal 12.0-16.0 [facility] Comment on above: Performed By: #### 2 121606, 3668563, 3061491, 71248933, 2644638, 6099676 #### [facility] [address] [place] [address] 48715 MCH (RBC) [Entitic mass] 30.8 pg Normal 27.0-34.0 [facility] Comment on above: Performed By: #### 2 186770, 3394721, 0625100, 73971256, 1909807, 0301451 #### [facility] [address] [place] [address] 05323 MCHC (RBC) [Mass/Vol] 32.8 g/dL Normal 31.4-36.0 [facility] Comment on above: Performed By: #### 2 921973, 5383495, 5708007, 15909365, 0349193, 5328521 #### [facility] [address] [place] [address] 15627 MCV (RBC) [Entitic vol] 93.8 fL Normal 80.0-100.0 [facility] Comment on above: Performed By: #### 2 587629, 8298572, 4156170, 29583133, 3801939, 5850616 #### [facility] [address] [place] [address]26 Platelet mean volume (Bld) [Entitic vol] 8.6 fL Normal 6.4-10.8 [facility] Comment on above: Performed By: #### 2 061367, 9118662, 1451352, 57477418, 0421884, 8769342 #### [facility] [address] [place] [address]955 Platelets (Bld) [#/Vol] 240.0 E9/L Normal 150.0-500.0 [facility] Comment on above: Performed By: #### 2 467104, 1615284, 8483502, 20499573, 4299103, 7884681 #### [facility] [address] [place] [address] 38982 RBC (Bld) [#/Vol] 4.6 E12/L Normal 4.3-5.9 [facility] Comment on above: Performed By: #### 2 512250, 4880572, 4487311, 25488229, 8921501, 6908704 #### [facility] [address] [place] [address] WBC corrected for nucl RBC Auto (Bld) [#/Vol] 7.3 E9/L Normal 4.0-11.0 [facility] Comment on above: Performed By: #### 2 300439, 6874005, 5892959, 39169006, 2154896, 2630145 #### [facility] [address] [place] [address] Creatinineon 12-23-2018 Creatinine [Mass/Vol] 0.8 mg/dL Normal 0.5-1.3 [facility] Comment on above: Performed By: #### 2 [id number], [id number], [id number], [id number], [id number], [id number] #### [facility] [address] [place] [address] Glucoseon 12-23-2018 Glucose [Mass/Vol] 101 mg/dL Normal 55-199 [facility] Comment on above: Performed By: #### 2 [id number], [id number], [id number], [id number], [id number], [id number] #### [facility] [address] [place] [address] Lyteson 12-23-2018 Anion gap [Moles/Vol] 11 mmol/L Normal 6-16 [facility] Comment on above: Performed By: #### 2 [id number], [id number], [id number], [id number], [id number], [id number] #### [facility] [address] [place] [address] Chloride [Moles/Vol] 106 mmol/L Normal 101-111 [facility] Comment on above: Performed By: #### 2 [id number], [id number], [id number], [id number], [id number], [id number] #### [facility] [address] [place] [address] CO2 [Moles/Vol] 27 mmol/L Normal 21-31 [facility] Comment on above: Performed By: #### 2 [id number], [id number], [id number], [id number], [id number], [id number] #### [facility] [address] [place] [address] Potassium [Moles/Vol] 3.9 mmol/L Normal 3.5-5.3 [facility] Comment on above: Performed By: #### 2 [id number], [id number], [id number], [id number], [id number], [id number] #### [facility] [address] [place] [address] Sodium [Moles/Vol] 140 mmol/L Normal 135-145 [facility] Comment on above: Performed By: #### 2 [id number], [id number], [id number], [id number], [id number], [id number] #### [facility] [address] [place] [address] XR Chest 2 Viewson 9 XR Chest 2 Views Exam Date/Time: 12/23/2018 11:47 EDT Reason for Exam: Pre Op Report IMPRESSION: NO EVIDENCE OF ACTIVE CHEST DISEASE. CLINICAL HISTORY: Pre Op. COMMENT: There is an intracardiac electrode, but no defibrillator device is present. The peripheral portion of the detached electrode is located anterior to the left hemithorax. The heart is normal in size. The mediastinum is unremarkable. The lungs appear clear. No infiltration nor pleural effusion is evident. FINAL REPORT Dictated: 12/23/2018 3:02 pm Andrew Spaulding M.D. Signed (Electronic Signature): 12/23/2018 3:02 pm Signed by: Andrew Spaulding M.D. Transcribed by: TOMMY Technologist: RH Normal [facility] eGFRon 12-23-2018 GFR/1.73 sq M predicted among blacks MDRD (S/P/Bld) [Vol rate/Area] mL/min/{1.73_m2} Normal >=59 [facility] Comment on above: Order Comment: Order added by Discern Expert. Result Comment: eGFR is race adjusted. AA=. Performed By: #### 2 [id number], [id number], [id number], [id number], [id number], [id number] #### [facility] [address] [place] [address] GFR/1.73 sq M predicted among non-blacks MDRD (S/P/Bld) [Vol rate/Area] mL/min/{1.73_m2} Normal >=59 [facility] Comment on above: Order Comment: Order added by Discern Expert. Result Comment: Senior Site Manager colt kidney disease could be indicated at eGFR's of less than 60 mL/min/1.73m2. Kidney failure is indicated at less than 15 mL/min/1.73m2. Performed By: #### 2 [id number], [id number], [id number], [id number], [id number], [id number] #### [facility] [address] [place] [address] Vital Signs Date Time Vital Sign Value Performing Clinician Facility 07-07-2024 11:03-0400 Body height 165.1 cm Nickolas Anamor TECHNICAL TRANSLATOR Work Phone: [facility] 07-07-2024 11:03-0400 Diastolic blood pressure 76 mm[Hg] Nickolas Gillmor TECHNICAL TRANSLATOR Work Phone: [facility] 07-07-2024 11:03-0400 Heart rate 133 /min Nickolas Gillmor TECHNICAL TRANSLATOR Work Phone: [facility] 07-07-2024 11:03-0400 Systolic blood pressure 130 mm[Hg] Nickolas Gillmor TECHNICAL TRANSLATOR Work Phone: [facility] 04-05-2024 10:58-0500 Body height 165.1 cm Nickolas Gillmor TECHNICAL TRANSLATOR Work Phone: [facility] 04-05-2024 10:58-0500 Body mass index (BMI) [Ratio] 28.46 kg/m2 Nickolas Gillmor TECHNICAL TRANSLATOR Work Phone: [facility] 04-05-2024 10:58-0500 Body weight 77.56 kg Nickolas Davidsonr TECHNICAL TRANSLATOR Work Phone: [facility] 04-05-2024 10:58-0500 Diastolic blood pressure 92 mm[Hg] Nickolas Perezmor TECHNICAL TRANSLATOR Work Phone: [facility] 04-05-2024 10:58-0500 Heart rate 92 /min Nickolas Perezmor TECHNICAL TRANSLATOR Work Phone: [facility] 04-05-2024 10:58-0500 Systolic blood pressure 151 mm[Hg] Nickolas Perezmor TECHNICAL TRANSLATOR Work Phone: [facility] 07-10-2023 14:05-0400 Body height 166.37 cm [facility] 07-10-2023 14:05-0400 Body mass index (BMI) [Ratio] 29.5 kg/m2 [facility] 07-10-2023 14:05-0400 Body weight 81.81 kg [facility] 07-10-2023 14:05-0400 Diastolic blood pressure 89 mm[Hg] [facility] 07-10-2023 14:05-0400 Heart rate 86 /min [facility] 07-10-2023 14:05-0400 Respiratory rate 16 /min [facility] 07-10-2023 14:05-0400 Systolic blood pressure 125 mm[Hg] [facility] Encounters Encounter Date Encounter Type Care Provider Facility Start: 07-07-2024 End: 07-07-2024 Bamboo flowsheet Nickolas Davidsonr TECHNICAL TRANSLATOR Work Phone: [facility] Start: 07-07-2024 End: 07-07-2024 Bamboo flowsheet Nickolas Anamor TECHNICAL TRANSLATOR Work Phone: [facility] Start: 07-07-2024 End: 07-07-2024 Office outpatient visit 25 minutes Nickolas Davidsonr TECHNICAL TRANSLATOR Work Phone: [facility] Comment on above: Parkinson's disease, unspecified whether dyskinesia present, unspecified whether manifestations fluctuate (CMS/HCC) (Primary Dx); Primary insomnia; REM behavioral disorder Start: 07-07-2024 End: 07-07-2024 ambulatory NICKOLAS ANAMOR Not Available Start: 04-05-2024 End: 04-05-2024 Bamboo flowsheet Nickolas Perezmor TECHNICAL TRANSLATOR Work Phone: [facility] Start: 04-05-2024 End: 04-05-2024 Bamboo flowsheet Nickolas Perezmor TECHNICAL TRANSLATOR Work Phone: [facility] Start: 04-05-2024 End: 04-05-2024 Office outpatient visit 15 minutes Nickolas Perezmor TECHNICAL TRANSLATOR Work Phone: [facility] Comment on above: Primary insomnia (Pr imary Dx); Parkinson's disease, unspecified whether dyskinesia present, unspecified whether manifestations fluctuate (CMS/HCC); REM behavioral disorder Start: 04-05-2024 End: 04-05-2024 ambulatory NICKOLAS GILLMOR Not Available Start: 09-28-2023 End: 09-28-2023 ambulatory NICKOLAS GILLMOR Not Available Start: 09-18-2023 End: 09-18-2023 ambulatory [facility] Work Phone: Start: 09-18-2023 End: 09-18-2023 Patient encounter procedure [facility] Work Phone: Start: 08-14-2023 End: 08-14-2023 ambulatory [facility] Work Phone: Start: 08-14-2023 End: 08-14-2023 Patient encounter procedure [facility] Work Phone: Start: 07-10-2023 End: 07-10-2023 ambulatory [facility] Work Phone: Start: 07-10-2023 End: 07-10-2023 Patient encounter procedure [facility] Work Phone: Start: 06-22-2023 Non-patient / Non-visit [facility] Work Phone: Start: 06-08-2023 End: 06-08-2023 ambulatory [facility] Work Phone: Start: 06-08-2023 End: 06-08-2023 Patient encounter procedure [facility] Work Phone: Start: 05-05-2023 End: 05-05-2023 Patient encounter procedure [facility] Work Phone: Start: 03-02-2023 End: 03-02-2023 ambulatory Jose C Kilgore Other [facility] Other Start: 03-02-2023 Nursing evaluation o f patient and report Jose C Kilgore [facility] Start: 12-29-2022 End: 12-29-2022 ambulatory Jose C Kilgore Other [facility] Other Start: 12-29-2022 Nursing evaluation o f patient and report Jose C Kilgore [facility] Start: 11-25-2022 End: 11-25-2022 ambulatory Jose C Kilgore Other [facility] Other Start: 11-25-2022 Nursing evaluation o f patient and report Jose C Kilgore [facility] Start: 10-22-2022 End: 10-22-2022 ambulatory Jose C Kilgore Other [facility] Other Start: 10-22-2022 Nursing evaluation o f patient and report Jose C Kilgore [facility] Start: 07-25-2022 End: 07-25-2022 ambulatory Jose C Kilgore Other [facility] Other Start: 07-25-2022 Nursing evaluation o f patient and report Jose C Kilgore [facility] Start: 04-24-2022 End: 04-24-2022 ambulatory Jose C Kilgore Other [facility] Other Start: 04-24-2022 Nursing evaluation o f patient and report Jose C Kilgore [facility] Start: 03-17-2022 End: 03-17-2022 ambulatory Jose C Kilgore Other [facility] Other Start: 03-17-2022 Nursing evaluation o f patient and report Jose C Kilgore [facility] Start: 01-31-2022 End: 02-01-[address] JOSE C KILGORE Facility: Start: 01-13-2022 Adult health examination Noe Kilgore Other [facility] Other Procedures Date Procedure Procedure Detail Performing Clinician Start: 01-18-2019 Anesthesia consultation Start: 01-06-2019 Anesthesia consultation Start: 08-15-2016 Screening for osteoporosis Jose C Kilgore Other Start: 08-14-2015 Screening for malign ant neoplasm of colon Jose C Kilgore Other Depression screening Galina Kilgore Other Plan of Treatment Date Care Activity Detail Author Start: 11-21-2024 End: 11-21-2024 Patient encounter procedure 11/21/2024 11:00 AM EDT Office Visit [facility] [address] [place] [phone] Nickolas Rob NP [address] [place] [address] [facility] Start: 07-07-2024 End: 07-07-2024 Patient encounter procedure [facility] Comment on above: Arrived Start: 04-05-2024 End: 04-05-2024 Patient encounter procedure 04/05/2024 11:00 AM EST Office Visit [facility] [address] [place] [phone] Nickolas Rob NP [address] [place] [address] Arrived [facility] Comment on above: Arrived Comprehensive metabo lic 2000 panel - Serum or Plasma [facility] Immunizations Immunization Date Immunization Notes Care Provider Fa cility 01-13-2022 influenza virus vaccine, split virus (incl. purified surface antigen) Jose C Kilgore Other [facility] Other 01-13-2022 influenza virus vaccine, unspecified formulation [facility] 01-21-2021 influenza virus vaccine, split virus (incl. purified surface antigen) Jose C Kilgore Other [facility] Other 01-21-2021 influenza virus vaccine, unspecified formulation [facility] 12-15-2019 influenza virus vaccine, split virus (incl. purified surface antigen) Jose C Kilgore Other [facility] Other 12-15-2019 influenza virus vaccine, unspecified formulation [facility] 11-19-2018 influenza virus vaccine, split virus (incl. purified surface antigen) Jose C Kilgore Other [facility] Other 11-19-2018 influenza virus vaccine, unspecified formulation [facility] 02-24-2018 pneumococcal conjuga te vaccine, 13 valent Nickolas Rob TECHNICAL TRANSLATOR Work Phone: [facility] 12-01-2017 influenza virus vaccine, split virus (incl. purified surface antigen) Jose C Kilgore Other [facility] Other 12-01-2017 influenza virus vaccine, unspecified formulation [facility] 12-04-2016 influenza virus vaccine, split virus (incl. purified surface antigen) Jose C Kilgore Other [facility] Other 12-04-2016 influenza virus vaccine, unspecified formulation [facility] 02-13-2016 pneumococcal conjuga te vaccine, 13 valent Jose C iKlgore Other [facility] 02-13-2016 pneumococcal Conjuga te, unspecified formulation; Translations: [Need for prophylactic vaccination against Streptococcus pneumoniae (pneumococcus)] Jose C Kilgore Other [facility] Other 12-04-2015 influenza virus vaccine, split virus (incl. purified surface antigen) Jose C Kilgore Other [facility] Other 12-04-2015 influenza virus vaccine, unspecified formulation [facility] 12-05-2013 tetanus and diphther ia toxoids, adsorbed, preservative free, for adult use (5 Lf of tetanus toxoid and 2 Lf of diphtheria toxoid) Jose C Kilgore Other [facility] 11-23-2012 tetanus and diphther ia toxoids, adsorbed, preservative free, for adult use (5 Lf of tetanus toxoid and 2 Lf of diphtheria toxoid) Jose C Kilgore Other [facility] 11-07-2011 tetanus and diphther ia toxoids, adsorbed, preservative free, for adult use (5 Lf of tetanus toxoid and 2 Lf of diphtheria toxoid) Jose C Kilgore Other [facility] 11-07-2010 pneumococcal polysaccharide vaccine, 23 valent Jose C Kilgore Other [facility] Payers Date Payer Category Payer Private Health Insurance [employer] [id number] 2024 Unknown [id number] 2006 Medicare MEDICARE [id number] 1959 Medicare [id number] 1959 Unknown [id number] 1940 Unknown [id number] 1941 Unknown [id number] 1940 Unknown [id number] 1940 Unknown [id number] Social History Date Type Detail Facility Start: 09-28-2023 End: 07-07-2024 Sex Assigned At [employer] Other Start: 1940 Sex Assigned At [facility] Start: 09-28-2023 Tobacco smoking stat [facility] Never smoked tobacco [facility] Start: 09-28-2023 Tobacco use and exposure Smokeless tobacco non-user [facility] Start: 09-28-2023 End: 07-07-2024 Alcoholic beverage intake Lifetime non-drinker (finding) [facility] Start: 09-28-2023 End: 07-07-2024 History of Social function [facility] Start: 1940 Sex assigned at Not on file [facility] Clinical Notes 03-17-2022 to 04-05-2024 Nickolas Rob, ISIAH - 04/05/2024 11:00 AM EST Note Date & Type Note Facility 04-05-2024 History of Presen t illness Narrative Images from the original note were not included. Chief Complaint Patient presents with Parkinson's Disease Juice Mclaughlin is here today with her and daughter. He reports the increase in Sinemet does seem to help. This helps if she remembers to take the bedtime dose. She does do HEP. She denies any trouble eating, drinking, or swallowing. She denies any recent falls. She states the tremor does get worse when she is talking to someone. They deny any other concerns. Past Medical History: Diagnosis Date Parasomnia Parkinson [...] Neurologic: No new headaches or dizziness Vitals: 04/05/24 1058 BP: (!) 151/92 Pulse: 92 Body mass index is 28.46 kg/m . 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 She still has a significant tremor however her other symptoms are mostly controlled. She tried the Mysoline that caused her [...] not exercise her upper body. We did have her take the Sinemet 4 times a day as she had not tired this. As long as she remembers the bedtime does it helps. She will forget it at times. She does have very visible tremor in room today in bilateral hands, left > right. She denies a wearing off of meds. The tremor does disappear when she is active and while using arms during exam. She is exercising and she needs to gradually increase exercise and intensity and be more active overall. She is using the stationary pedals although they are doing the work for her as she has not used the manual mode and should do this some. Her parasomnias and REM behavior do are controlled as long as she does not watch anything scarier thrilling before bed. She is having sleep maintnenace insomnia and we will add back in the doxepin. It is unclear why she stopped taking it. She does have some snoring so we did order an home sleep study to look for obstructive sleep apnea and they decided to not have this done. She denies any recent falls. . . . Plan Get back on doxepin 10 mg 1-2 caps at bedtime for insomnia Continue sinemet CR to QID Consider adding in Comtan or Sinemet IR at next visit Continue Requip to 2mg tid Can consider [...] were answered and they agreed with the treatment plan. The patient is to call with any worsening of the condition or new symptoms. Return to clinic: 3 months documented in this encounter [facility] 03-02-2023 Evaluation note Encounter Date Diagnosis Assessment Notes Feb, Pernicious anemia (ICD-10 - D51.0) [facility] Other 11-06-2023 Evaluation note* Encounter Date Diagnosis Assessment Notes Treatment Notes Treatment Clinical Notes Dec, Pernicious anemia (ICD-10 - D51.0) [facility] Other 10-03-2023 Evaluation note* Encounter Date Diagnosis Assessment Notes Treatment Notes Treatment Clinical Notes Nov, Pernicious anemia (ICD-10 - D51.0) [facility] Other 08-30-2023 Evaluation note* Encounter Date Diagnosis Assessment Notes Treatment Notes Treatment Clinical Notes Sep, Pernicious anemia (ICD-10 - D51.0) [facility] Other 06-02-2023 Evaluation note* Encounter Date Diagnosis Assessment Notes Treatment Notes Treatment Clinical Notes Jul, Pernicious anemia (ICD-10 - D51.0) [facility] Other 03-02-2023 Evaluation note* Encounter Date Diagnosis Assessment Notes Treatment Notes Treatment Clinical Notes Apr, Pernicious anemia (ICD-10 - D51.0) [facility] Other 01-23-2023 Evaluation note* Encounter Date Diagnosis Assessment Notes Treatment Notes Treatment Clinical Notes Feb, Pernicious anemia (ICD-10 - D51.0) [facility] Other Evaluation noteNo assessment information available [facility] Work Phone: Evaluation note* Diagnosis Onset Date Resolution Status Chronic venous insufficiency of lower extremity acute Hypercholesterolemia acute Hypertension acute NSVT (nonsustained ventricular tachycardia) acute Medicare annual wellness visit, subsequent noneactive [facility] Work Phone: Evaluation note* Diagnosis Onset Date Resolution Status Chronic venous insufficiency of lower extremity acute Hypercholesterolemia acute Hypertension acute NSVT (nonsustained ventricular tachycardia) acute Overweight acute Medicare annual wellness visit, subsequent noneactive [facility] Work Phone: Evaluation note* Diagnosis Primary insomnia- Primary Persistent disorder of initiating or maintaining sleep Parkinson's disease, unspecified whether dyskinesia present, unspecified whether manifestations fluctuate (CMS/HCC) 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 [facility] Diagnosis Parkinson's disease, unspecified whether dyskinesia present, unspecified whether manifestations fluctuate (CMS/HCC)- Primary Primary insomnia Persistent disorder of initiating or maintaining sleep 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 [facility] N[facility] - Reported* Type Description Date Surgical History Problem Title : COLONOSCOPY (45 378), Problem Status : Active, Surgical History Problem Title : past surgical history reviewed, Problem Description : past surgical history reviewed, Problem Comment : reviewed - no changes required, Problem Status : Resolved, Surgical History Problem Title : surg ical procedures, hx of, Problem Description : surgical procedures, hx of, Problem Comment : [facility] 2000 ICD Ablation 2002 DON/BSO 1982 [id number], 2009, 2011, Problem Status : Active, [facility] Other Summary Purpose Family History No Family History Records FoundNo Family History Records FoundNo Family History Records Found Advance Directives No Advanced Directives Records Found Advance Directive Response Recorded Date/ Time Advance Directives No May 04 024 10:09am Procedure Findings Note Patient: KHALIF TAPIA Age: 78 years Sex: Female : 1940 Associated Diagnoses: None Author: Earnest Albright Jr., DO Postoperative Information Post Operative Note: Post Anesthesia Care Unit. Anesthetic utilized: General. Health Status Allergies: Allergic Reactions (Selected) No Known Medication Allergies Problem list: All Problems Hypertension / SNOMED CT 4245669072 / Confirmed Cataract / SNOMED CT 060174333 / Confirmed left eye H/O Parkinson's disease / SNOMED CT 999832841 / Confirmed Physical Examination Vital Signs 03/29/2019 9:34 EST Temperature Oral 36.5 DegC Heart Rate Monitored 86 bpm Respiratory Rate 16 br/min Systolic Blood Pressure 147 mmHg HI Diastolic Blood Pressure 79 mmHg Blood Pressure Location Right arm Mean Arterial Pressure, Monitered 102 mmHg 03/29/2019 8:28 EST Temperature Oral 36.5 DegC Heart Rate Monitored 74 bpm Respiratory Rate 16 br/min Systolic Blood Pressure 146 mmHg HI Diastolic Blood Pressure 73 mmHg Blood Pressure Location Ri (more content not included)... Chief Complaint and Reason for Visit Chief Complaint B-12 Shot B12 Chief Complaint B-12 Shot B12 Amb Documentation Wellness / B12 Reason for Visit Chronic venous insuf ficiency of lower extremity Hypercholesterolemia Hypertension NSVT (nonsustained ventricular tachycardia) Medicare annual wellness visit, subsequent Chief Complaint B12 Amb Documentation Wellness / B12 b12 Shot Reason for Visit Chronic venous insuf ficiency of lower extremity Hypercholesterolemia Hypertension NSVT (nonsustained ventricular tachycardia) Overweight Medicare annual wellness visit, subsequent Chief Complaint Amb Documentation Wellness / B12 b12 Shot B12 Shot Reason for Visit Chronic venous insuf ficiency of lower extremity Hypercholesterolemia Hypertension NSVT (nonsustained ventricular tachycardia) Overweight Medicare annual wellness visit, subsequent Additional Source Comments INFORMATION SOURCE (unrecogn ized section and content) DATE CREATED AUTHOR 03/31/2019 [facility] DATE CREATED AUTHOR AUTHOR'S ORGANIZ ATION 02/04/2022 [facility] DATE CREATED AUTHOR AUTHOR'S ORGANIZ ATION 07/08/2024 [facility] Specialists EPIC REASON FOR VISIT (unrecogniz ed section and content) Reason Comments Parkinson's Disease Reason Comments Parkinson's Disease Insomnia Care Teams (unrecognized sec tion and content) Team Status: Active Member Role Status Dates Jose C Kilgore DO Primary Care Provider Active Team Status: Active Member Role Status Dates Jose C Kilgore DO Primary Care Provider Active Start: June 22, 2023 MOHINI Maldonado Attending Provider Active Start : June 22, 2023 Team Status: Inactive Member Role Status Dates Jose C Kilgore DO Primary Care Provide r, Attending Provider Active Start: July 10, 2023 End: July 10, 2023 Team Status: Inactive Member Role Status Dates Jose C Kilgore Primary Care Provide r, Attending Provider Active Start: August 14, 2023 End: August 14, 2023 Team Status: Inactive Member Role Status Dates Jose C Kilgore Primary Care Provide r, Attending Provider Active Start: September 18, 2023 End: September 18, 2023 Team Status: Inactive Member Role Status Dates Jose C Kilgore Primary Care Provide r, Attending Provider Active Start: May 05, 2023 End: May 05, 2023 Team Status: Inactive Member Role Status Dates Jose C Kilgore Primary Care Provide r, Attending Provider Active Start: June 08, 2023 End: June 08, 2023 Siphon Operator Relationship Specialty Start Date End Date Jose C Kilgore MD [address] [place] [id number] PCP - General Internal Medicine 09/28/23 Siphon Operator Relationship Specialty Start Date End Date Jose C Kilgore MD [address] [place] [id number] PCP - General Internal Medicine 09/28/23 Siphon Operator Relationship Specialty Start Date End Date Jose C Kilgore DO PCP - General Internal Medicine 09/28/23 Siphon Operator Relationship Specialty Start Date End Date Jose C Kilgore DO PCP - General Internal Medicine 09/28/23 Goals (unrecognized section and content) Goals may be documented in a n alternate section FOR RECORDS PERTAINING TO PATIENTS WHO ARE OR HAVE BEEN ENROLLED IN A CHEMICAL DEPENDENCY/SUBSTANCEABUSE PROGRAM, SOME INFORMATION MAY BE OMITTED. This clinical summary was aggregated from multiple sources. Caution should be exercised in using it in the provision of clinical care. This summary normalizes information from multiple sources, and as a consequence, information in this document may materially change the coding, format and clinical context of patient data. In addition, data may be omitted in some cases. CLINICAL DECISIONS SHOULD BE BASED ON THE PRIMARY CLINICAL RECORDS. [facility] provides no warranty or guarantee of the accuracy or completeness of information in this document.
[2024-07-13 12:43] LABS: Alanine Aminotransferase 13 U/L (14-59); Albumin Level 3.5 g/dL (3.4-5.0); Alkaline Phosphatase 108 U/L (46-116); Aspartate Amino Transferase 19 U/L (15-37); BUN Creatinine Ratio 25.3; Bilirubin Total 0.5 mg/dL (0.2-1.0); Calcium 9.3 mg/dL (8.5-10.1); Carbon Dioxide 31.3 mmol/L (21.0-32.0); Chloride 107 mmol/L (98-107); Estimated GFR (African America >60 (>=60 mL/min/1.73m^2); Estimated GFR (Non-African Ame >60 (>=60 mL/min/1.73m^2); Globulin 3.4 g/dL; Glucose 95 mg/dL (74-106); Potassium 4.3 mmol/L (3.5-5.1); Sodium 143 mmol/L (136-145); Thyroid Stimulating Hormone 2.602 uIU/mL (0.358-3.740); Total Protein 6.9 g/dL (6.4-8.2)
[2024-07-13 13:02] LABS: Basophils Absolute Auto 0.1 10^3/uL (0.0-0.1); Eosinophils Absolute Auto 0.1 10^3/uL (0.0-0.7); Eosinophils Percent Auto 1.9 % (0.9-7.0); Hemoglobin 13.9 g/dL (12.0-16.0); Immature Granulocytes Abs Auto 0.01 10^3/uL (0.00-0.03); Immature Granulocytes Pct Auto 0.1 % (0.0-0.5); Lymphocytes Absolute Auto 1.9 10^3/uL (1.2-3.8); Lymphocytes Percent Auto 28.2 % (20.5-60.0); Mean Corpuscular HGB Conc 32.3 g/dL (29.9-35.2); Mean Corpuscular Volume 95.8 fL (81.0-99.0); Mean Platelet Volume 9.8 fL (9.5-13.5); Monocytes Absolute Auto 0.5 10^3/uL (0.3-0.8); Monocytes Percent Auto 7.3 % (1.7-12.0); Neutrophils Absolute Auto 4.1 10^3/uL (1.4-6.5); Neutrophils Percent Auto 61.5 % (43.0-75.0); Platelet Count 245 10^3/uL (150-450); Red Blood Count 4.49 10^6/uL (4.20-5.40); White Blood Count 6.7 10^3/uL (4.0-11.0)
== END 2024-07-13 11:46 | disposition home or self-care (01) ==
LOC: LAB 11:50
PROVIDERS: PCP Internal Medicine; Visit Provider Internal Medicine
DX: R53.83 Other fatigue (principal); I87.2 Venous insufficiency (chronic) (peripheral); I10 Essential (primary) hypertension; G20.A1 Parkinson's disease without dyskinesia, without mention of fluctuations
CPT/HCPCS: 36415; 80053; 84443; 85025